=== PATIENT | male | born 1950 | race Caucasian/White ===

== ENCOUNTER 2017-03-26 23:29 | Inpatient (IN) | payer MEDICARE, MEDICAID ==
[~2017-03-26] VITALS: Ht 180.3 cm; Wt 104.3 kg
[2017-03-26] MEDS ORDERED: SODIUM CHLORIDE 0.9% 1,000 ML IV ONE (23:51)
[2017-03-26] MEDS ORDERED: KETOROLAC 30MG/ML VIAL IV STA (23:51)
[2017-03-27 00:14] LABS: BASOPHILS % 0.3 % (0.0-2.0); EOSINOPHILS % 1.8 % (0.0-5.0); HEMATOCRIT. 24.3 % (42.0-52.0); HEMOGLOBIN. 8.2 g/dL (14.0-18.0); LYMPHOCYTES % 11.3 % (20.0-50.0); MEAN CORPUSCULAR VOLUME 86.3 fL (80.0-94.0); MONOCYTES % 6.7 % (2.0-8.0); NEUTROPHILS % 79.9 % (40.0-76.0); PLATELET 193 x1000/uL (130-400); RED BLOOD CELL COUNT 2.82 mill/uL (4.7-6.1); RED CELL DISTRIBUTION WIDTH 15.1 % (11.6-14.6)
[2017-03-27 00:29] LABS: INR 1.1; PROTHROMBIN TIME 11.4 sec (9.4-11.6)
[2017-03-27 00:50] LABS: CARBON DIOXIDE 22 mEq/L (21-32); CHLORIDE 111 mEq/L (98-107)
[2017-03-27] MEDS ORDERED: DOCUSATE SODIUM 100MG CAPSULE PO PRN (04:15)
[2017-03-27] MEDS ORDERED: ONDANSETRON HCL 4MG/2ML VIAL IV PRN (04:15)
[2017-03-27] MEDS ORDERED: LEVOFLOXACIN 500MG PREMIX 100 ML IV SCH (04:15)
[2017-03-27] MEDS ORDERED: TRAMADOL 50MG TABLET PO PRN (04:15)
[2017-03-27] MEDS ORDERED: ACETAMINOPHEN 325MG TABLET PO PRN (04:15)
[2017-03-27] MEDS ORDERED: LEVOFLOXACIN 500MG PREMIX 100 ML IV NR (05:15)
[2017-03-27] MEDS: SODIUM CHLORIDE 0.45% 1,000 ML IV SCH (05:24)
[2017-03-27 08:25] VITALS: BP 170/68
[2017-03-27] MEDS: CLONIDINE 0.1MG TABLET PO PRN ×2 (09:29→18:03)
[2017-03-27] MEDS ORDERED: AMLODIPINE 5MG TABLET PO NR (10:45)
[2017-03-27 12:00] VITALS: BP 173/74
[2017-03-27] MEDS ORDERED: HYDR100T26 PO (13:35)
[2017-03-27] MEDS ORDERED: GABA400C PO (13:35)
[2017-03-27] MEDS ORDERED: FERR220S12 PO (13:35)
[2017-03-27] MEDS ORDERED: DOCU-138 PO (13:35)
[2017-03-27] MEDS ORDERED: OMEP20CA10 PO (13:35)
[2017-03-27] MEDS ORDERED: DUONEB3 ML INH (13:35)
[2017-03-27] MEDS ORDERED: NEPVIT PO (13:35)
[2017-03-27] MEDS ORDERED: LABE100T PO (13:35)
[2017-03-27] MEDS ORDERED: METH5TAB2 PO (13:35)
[2017-03-27] MEDS ORDERED: SODI650T PO (13:35)
[2017-03-27] MEDS ORDERED: OCD MT (13:35)
[2017-03-27] MEDS ORDERED: LEVVL SQ (13:35)
[2017-03-27] MEDS ORDERED: TAMS-11 PO (13:35)
[2017-03-27] MEDS ORDERED: ATOR10TA PO (13:35)
[2017-03-27] MEDS ORDERED: FURO-152 PO (13:35)
[2017-03-27] MEDS ORDERED: IPRATROPIUM/ALBUTEROL 0.5-3(2.5)MG/3ML NEB HHN PRN (13:45)
[2017-03-27] MEDS: HYDRALAZINE HCL 50MG TABLET PO SCH ×2 (14:22→22:00)
[2017-03-27] MEDS: TAMSULOSIN HCL 0.4MG SR CAPSULE PO SCH ×2 (14:23→22:10)
[2017-03-27] MEDS: METHYLPREDNISOLONE SOD SUCC 125 MG/2 ML VIAL IV SCH ×2 (14:23→22:09)
[2017-03-27] MEDS: GABAPENTIN 400MG CAPSULE PO SCH ×2 (14:23→22:10)
[2017-03-27 16:00] VITALS: BP 160/76
[2017-03-27] MEDS ORDERED: FERROUS SULFATE 325 MG PO SCH (17:00)
[2017-03-27 17:19] LABS: HEPATITIS B SURFACE ANTIGEN NEGATIVE
[2017-03-27 17:47] LABS: HEPATITIS B CORE AB IGM NEGATIVE
[2017-03-27 17:48] LABS: HEPATITIS A AB IGM NEGATIVE (NEGATIVE)
[2017-03-27] MEDS: FUROSEMIDE 40MG/4ML VIAL IVP SCH (18:02)
[2017-03-27] MEDS: FERROUS SULFATE 325MG TABLET PO SCH (18:03)
[2017-03-27] MEDS: DOCUSATE SODIUM 100MG CAPSULE PO SCH (18:03)
[2017-03-27] MEDS: SODIUM BICARBONATE 650 MG TABLET PO SCH (18:03)
[2017-03-27] MEDS: METHADONE HCL 5MG TABLET PO SCH ×2 (18:04→22:12)
[2017-03-27 18:55] VITALS: BP 149/78
[2017-03-27 20:00] VITALS: BP 122/68
[2017-03-27] MEDS ORDERED: DEXTROSE 50% WATER 50ML SYRINGE IV PRN (20:30)
[2017-03-27] MEDS: LABETALOL HCL 100MG TABLET PO SCH (21:00)
[2017-03-27] MEDS: BUDESONIDE 0.5MG/2ML NEB HHN SCH (22:06)
[2017-03-27] MEDS: IPRATROPIUM/ALBUTEROL 0.5-3(2.5)MG/3ML NEB INH SCH (22:06)
[2017-03-27] MEDS: ATORVASTATIN CALCIUM 10MG TABLET PO SCH (22:10)
[2017-03-27] MEDS: AMLODIPINE 5MG TABLET PO SCH (22:11)
[2017-03-27] MEDS: BLOOD SUGAR DIAGNOSTIC STRIP TEST SCH (22:18)
[2017-03-27] MEDS: INSULIN DETEMIR UD 100 UNITS/ML SYR SUBCUT SCH (23:01)
[2017-03-27] MEDS: INSULIN LISPRO 100 UNITS/ML SUBCUT SCH (23:01)
[2017-03-28] VITALS: BP 159/74
[2017-03-28 01:26] LABS: CLARITY URINE CLEAR (CLEAR); COLOR URINE YELLOW (YELLOW); GLUCOSE URINE TRACE (NEGATIVE); KETONES URINE NEGATIVE (NEGATIVE); LEUKOCYTE ESTERASE URINE NEGATIVE (NEGATIVE); NITRITE URINE NEGATIVE (NEGATIVE); OCCULT BLOOD URINE TRACE (NEGATIVE); PH URINE 5.5 (4.5-8.0); PROTEIN URINE 3+ (NEGATIVE); SPECIFIC GRAVITY URINE 1.012 (1.005-1.030); UROBILINOGEN URINE 0.2 E.U./dL (0.2-1.0)
[2017-03-28 01:37] LABS: *AMPHETAMINES SCREEN URINE NEGATIVE (NEGATIVE); *BARBITURATES SCREEN URINE NEGATIVE (NEGATIVE); *BENZODIAZEPINES SCREEN URINE NEGATIVE (NEGATIVE); *COCAINE SCREEN URINE NEGATIVE (NEGATIVE); CANNABINOID URINE SCREEN NEGATIVE (NEGATIVE); METHADONE URINE SCREEN PRESUMTIVE POSITIVE (NEGATIVE); OPIATES URINE SCREEN PRESUMTIVE POSITIVE (NEGATIVE); PHENCYCLIDINE URINE SCREEN NEGATIVE (NEGATIVE)
[2017-03-28 04:00] VITALS: BP 120/63
[2017-03-28] MEDS: METHYLPREDNISOLONE SOD SUCC 125 MG/2 ML VIAL IV SCH ×2 (05:42→18:49)
[2017-03-28] MEDS: METHADONE HCL 5MG TABLET PO SCH ×2 (05:48→18:53)
[2017-03-28] MEDS: HYDRALAZINE HCL 50MG TABLET PO SCH ×3 (05:48→22:00)
[2017-03-28] MEDS: GABAPENTIN 400MG CAPSULE PO SCH ×2 (05:49→18:53)
[2017-03-28 05:57] LABS: INR 1.1; PARTIAL THROMBOPLASTIN TIME 30.1 sec (23.4-31.0)
[2017-03-28 06:14] LABS: HEMATOCRIT. 24.6 % (42.0-52.0); HEMOGLOBIN. 8.1 g/dL (14.0-18.0); MEAN CORPUSCULAR HEMOGLOBIN 28.7 pg (28.0-32.0); MEAN CORPUSCULAR VOLUME 87.7 fL (80.0-94.0); MEAN PLATELET VOLUME 8.9 fl (7.4-10.4); PLATELET 189 x1000/uL (130-400); RED BLOOD CELL COUNT 2.81 mill/uL (4.7-6.1); RED CELL DISTRIBUTION WIDTH 14.9 % (11.6-14.6)
[2017-03-28] MEDS: BLOOD SUGAR DIAGNOSTIC STRIP TEST SCH ×4 (07:18→21:00)
[2017-03-28] MEDS: OMEPRAZOLE 20MG CAPSULE EXTENDED RELEASE PO SCH (07:18)
[2017-03-28] MEDS: FERROUS SULFATE 325MG TABLET PO SCH ×2 (07:50→18:52)
[2017-03-28 07:54] LABS: CARBON DIOXIDE 20 mEq/L (21-32); CHLORIDE 106 mEq/L (98-107); HDL CHOLESTEROL 77 mg/dL (40-59); LDL CHOLESTEROL 38 mg/dL (5-100); TROPONIN I < 0.02 ng/mL (0.00-0.04)
[2017-03-28 07:57] VITALS: BP 171/72
[2017-03-28] MEDS: CALCIUM CARBONATE/VITAMIN D3 500MG TABLET PO SCH ×2 (09:00→18:59)
[2017-03-28] MEDS: SODIUM BICARBONATE 650 MG TABLET PO SCH ×2 (09:00→18:49)
[2017-03-28] MEDS: DOCUSATE SODIUM 100MG CAPSULE PO SCH ×2 (09:00→18:52)
[2017-03-28] MEDS: FOLIC ACID/VITAMIN B COMP W-C TABLET PO SCH ×2 (09:00→18:59)
[2017-03-28] MEDS: LABETALOL HCL 100MG TABLET PO SCH (09:00)
[2017-03-28] MEDS: AMLODIPINE 5MG TABLET PO SCH (09:00)
[2017-03-28] MEDS: INSULIN LISPRO 100 UNITS/ML SUBCUT SCH ×5 (09:10→23:24)
[2017-03-28 09:44] LABS: PLATELET ESTIMATE NORMAL
[2017-03-28] MEDS: INSULIN DETEMIR UD 100 UNITS/ML SYR SUBCUT SCH ×2 (10:00→22:00)
[2017-03-28] MEDS: IPRATROPIUM/ALBUTEROL 0.5-3(2.5)MG/3ML NEB INH SCH ×3 (10:54→20:09)
[2017-03-28] MEDS: BUDESONIDE 0.5MG/2ML NEB HHN SCH ×2 (10:54→20:09)
[2017-03-28] MEDS: FUROSEMIDE 40MG/4ML VIAL IVP SCH ×2 (11:00→18:53)
[2017-03-28] MEDS: TAMSULOSIN HCL 0.4MG SR CAPSULE PO SCH (11:22)
[2017-03-28] MEDS ORDERED: FENTANYL CITRATE/PF 50MCG/ML 2ML VIAL ONE (11:38)
[2017-03-28] MEDS ORDERED: MIDAZOLAM HCL 5 MG/5 ML VIAL ONE (11:39)
[2017-03-28] MEDS ORDERED: FENTANYL CITRATE/PF 50MCG/ML 2ML VIAL IV PRN (11:51)
[2017-03-28] MEDS ORDERED: MIDAZOLAM HCL 2 MG/2 ML VIAL IV PRN (11:51)
[2017-03-28 12:00] VITALS: BP 176/74
[2017-03-28] MEDS: LEVOFLOXACIN 250MG PREMIX 50 ML IV SCH (14:14)
[2017-03-28] MEDS: SODIUM CHLORIDE 0.45% 1,000 ML IV SCH (14:14)
[2017-03-28] MEDS ORDERED: SIMETHICONE 40 MG/0.6 ML 30ML ONE (14:32)
[2017-03-28] MEDS ORDERED: SODIUM CHLORIDE 0.9% 10ML VIAL ONE (14:32)
[2017-03-28] MEDS ORDERED: LIDOCAINE HCL 1% 20ML VIAL (Pyxis) INJ ONE (14:44)
[2017-03-28] MEDS ORDERED: SODIUM BICARBONATE 4.2% 5 MEQ/10 ML DISP.SYRIN IV ONE (14:44)
[2017-03-28 15:44] LABS: PROSTRATE SPECIFIC AG TOTAL 1.33 ng/mL (0.0-4.0)
[2017-03-28 16:00] VITALS: BP 179/74
[2017-03-28 20:41] VITALS: BP 184/72
[2017-03-28] MEDS: ATORVASTATIN CALCIUM 10MG TABLET PO SCH (21:00)
[2017-03-29] VITALS: BP 159/63
[2017-03-29] MEDS: SODIUM CHLORIDE 0.45% 1,000 ML IV SCH ×2 (00:26→05:54)
[2017-03-29] MEDS: TAMSULOSIN HCL 0.4MG SR CAPSULE PO SCH ×3 (00:27→21:49)
[2017-03-29] MEDS: AMLODIPINE 5MG TABLET PO SCH ×3 (00:28→21:51)
[2017-03-29] MEDS: GABAPENTIN 400MG CAPSULE PO SCH ×4 (00:29→21:51)
[2017-03-29] MEDS: LABETALOL HCL 100MG TABLET PO SCH ×3 (00:32→21:51)
[2017-03-29] MEDS: METHADONE HCL 5MG TABLET PO SCH ×4 (00:44→21:51)
[2017-03-29] MEDS: IPRATROPIUM/ALBUTEROL 0.5-3(2.5)MG/3ML NEB INH SCH ×4 (01:50→20:21)
[2017-03-29 04:00] VITALS: BP 161/65
[2017-03-29 06:32] LABS: HEMATOCRIT. 23.7 % (42.0-52.0); MEAN CORPUSCULAR HEMOGLOBIN 29.1 pg (28.0-32.0); MEAN CORPUSCULAR VOLUME 86.2 fL (80.0-94.0); MEAN PLATELET VOLUME 9.2 fl (7.4-10.4); PLATELET 201 x1000/uL (130-400); RED BLOOD CELL COUNT 2.75 mill/uL (4.7-6.1)
[2017-03-29] MEDS: BLOOD SUGAR DIAGNOSTIC STRIP TEST SCH ×4 (06:47→21:52)
[2017-03-29] MEDS: HYDRALAZINE HCL 50MG TABLET PO SCH ×3 (07:05→21:50)
[2017-03-29] MEDS: OMEPRAZOLE 20MG CAPSULE EXTENDED RELEASE PO SCH (07:07)
[2017-03-29] MEDS ORDERED: INSULIN LISPRO 100 UNITS/ML SUBCUT SCH (07:20)
[2017-03-29 08:10] VITALS: BP 168/68
[2017-03-29] MEDS: BUDESONIDE 0.5MG/2ML NEB HHN SCH ×2 (08:15→20:21)
[2017-03-29 08:28] LABS: PLATELET ESTIMATE NORMAL
[2017-03-29] MEDS ORDERED: SODIUM POLYSTYRENE SULFONATE 15 G/60 ML BOT PO NR (08:45)
[2017-03-29] MEDS: FERROUS SULFATE 325MG TABLET PO SCH ×2 (08:56→17:47)
[2017-03-29] MEDS: DOCUSATE SODIUM 100MG CAPSULE PO SCH ×2 (08:56→17:47)
[2017-03-29] MEDS: FOLIC ACID/VITAMIN B COMP W-C TABLET PO SCH (08:56)
[2017-03-29] MEDS: SODIUM BICARBONATE 650 MG TABLET PO SCH ×2 (08:56→17:47)
[2017-03-29] MEDS: CALCIUM CARBONATE/VITAMIN D3 500MG TABLET PO SCH (08:57)
[2017-03-29] MEDS: INSULIN LISPRO 100 UNITS/ML SUBCUT SCH ×3 (08:58→19:10)
[2017-03-29] MEDS: INSULIN LISPRO (LOW DOSE) 100 UNITS/ML SUBCUT SCH ×3 (08:58→19:11)
[2017-03-29] MEDS: FUROSEMIDE 40MG/4ML VIAL IVP SCH ×2 (09:44→17:47)
[2017-03-29] MEDS: LEVOFLOXACIN 250MG PREMIX 50 ML IV SCH (11:43)
[2017-03-29 12:46] VITALS: BP 168/68
[2017-03-29 13:13] LABS: ALPHA FETOPROTEIN TUMOR MARKER 1.8 ng/mL (0.0-8.3)
[2017-03-29 16:45] VITALS: BP 168/63
[2017-03-29 19:07] LABS: ANTI-NUCLEAR ANTIBODIES DIRECT Negative (Negative)
[2017-03-29 20:00] VITALS: BP 163/77
[2017-03-29] MEDS ORDERED: EPOETIN ALFA 10000UNITS/ML VIAL SUBCUT SCH (21:00)
[2017-03-29] MEDS: METHYLPREDNISOLONE SOD SUCC 40 MG/ML VIAL IV SCH (21:48)
[2017-03-29] MEDS: ATORVASTATIN CALCIUM 10MG TABLET PO SCH (21:50)
[2017-03-29] MEDS ORDERED: INSULIN DETEMIR UD 100 UNITS/ML SYR SUBCUT SCH (22:00)
[2017-03-30] VITALS: BP 133/55
[2017-03-30] MEDS: IPRATROPIUM/ALBUTEROL 0.5-3(2.5)MG/3ML NEB INH SCH ×3 (02:57→13:07)
[2017-03-30 04:00] VITALS: BP 156/57
[2017-03-30 05:36] LABS: HEMATOCRIT. 24.2 % (42.0-52.0); MEAN CORPUSCULAR HEMOGLOBIN 28.6 pg (28.0-32.0); MEAN CORPUSCULAR VOLUME 86.6 fL (80.0-94.0); MEAN PLATELET VOLUME 8.8 fl (7.4-10.4); PLATELET 230 x1000/uL (130-400); RED CELL DISTRIBUTION WIDTH 14.7 % (11.6-14.6)
[2017-03-30] MEDS: HYDRALAZINE HCL 50MG TABLET PO SCH ×2 (06:49→13:17)
[2017-03-30] MEDS: METHADONE HCL 5MG TABLET PO SCH ×2 (06:49→13:18)
[2017-03-30] MEDS: BLOOD SUGAR DIAGNOSTIC STRIP TEST SCH ×3 (06:50→17:50)
[2017-03-30] MEDS: GABAPENTIN 400MG CAPSULE PO SCH ×2 (06:50→13:17)
[2017-03-30] MEDS: OMEPRAZOLE 20MG CAPSULE EXTENDED RELEASE PO SCH (06:51)
[2017-03-30] MEDS: INSULIN LISPRO 100 UNITS/ML SUBCUT SCH ×3 (06:56→17:59)
[2017-03-30] MEDS: INSULIN LISPRO (LOW DOSE) 100 UNITS/ML SUBCUT SCH ×3 (08:49→17:59)
[2017-03-30] MEDS: FERROUS SULFATE 325MG TABLET PO SCH ×2 (08:49→17:59)
[2017-03-30] MEDS: AMLODIPINE 5MG TABLET PO SCH (08:50)
[2017-03-30] MEDS: FOLIC ACID/VITAMIN B COMP W-C TABLET PO SCH (08:50)
[2017-03-30] MEDS: LABETALOL HCL 100MG TABLET PO SCH (08:50)
[2017-03-30] MEDS: DOCUSATE SODIUM 100MG CAPSULE PO SCH ×2 (08:50→18:00)
[2017-03-30] MEDS: METHYLPREDNISOLONE SOD SUCC 40 MG/ML VIAL IV SCH (08:51)
[2017-03-30] MEDS: CALCIUM CARBONATE/VITAMIN D3 500MG TABLET PO SCH (08:51)
[2017-03-30] MEDS: TAMSULOSIN HCL 0.4MG SR CAPSULE PO SCH (08:51)
[2017-03-30] MEDS: SODIUM BICARBONATE 650 MG TABLET PO SCH ×2 (08:51→17:59)
[2017-03-30] MEDS: FUROSEMIDE 40MG/4ML VIAL IVP SCH (08:51)
[2017-03-30 08:56] VITALS: BP 162/59
[2017-03-30] MEDS: BUDESONIDE 0.5MG/2ML NEB HHN SCH (09:01)
[2017-03-30 09:08] LABS: DRVVT LA 45.4 sec (0.0-47.0); LUPUS ANTICOAG INTERPRETATION Comment: (.); PTT-LA 39.6 sec (0.0-51.9)
[2017-03-30] MEDS: LEVOFLOXACIN 250MG PREMIX 50 ML IV SCH (11:36)
[2017-03-30 12:02] VITALS: BP 174/71
[2017-03-30 13:12] LABS: ANTI-MYELOPEROXIDASE AB < 9.0 U/mL (0.0-9.0); ANTI-PROTEINASE 3 ABS < 3.5 U/mL (0.0-3.5)
[2017-03-30 15:12] LABS: ATYPICAL P-ANCA <1:20 titer (Neg:<1:20); CYTOPLASMIC C-ANCA <1:20 titer (Neg:<1:20); PERINUCLEAR P-ANCA <1:20 titer (Neg:<1:20)
[2017-03-30 16:05] LABS: TOTAL IRON BINDING CAPACITY 176 ug/dL (250-450)
[2017-03-30 16:28] VITALS: BP 143/58
[2017-03-30 16:34] LABS: FERRITIN 323 ng/mL (22-322)
[2017-03-30 16:46] LABS: VITAMIN B12 SERUM 499 pg/mL (211-911)
[2017-03-30 16:47] LABS: FOLIC ACID (FOLATE) SERUM > 20.00 ng/mL (>5.38)
[2017-03-30] MEDS ORDERED: FUROSEMIDE 40MG TABLET PO SCH (17:00)
[2017-03-30 17:12] LABS: ANGIOTENSION CONVERTING ENZYME 70 U/L (14-82)
[2017-03-30 17:20] LABS: PLATELET ESTIMATE NORMAL
[2017-03-30 17:23] VITALS: BP 143/58
[2017-03-30] MEDS ORDERED: INSULIN DETEMIR UD 100 UNITS/ML SYR SUBCUT SCH (22:00)
[2017-03-31] MEDS ORDERED: PREDNISONE 20MG TABLET PO SCH (09:00)
== END 2017-03-30 19:55 | DRG 291 ==
LOC: ER 23:29 → 6WST 03-27 01:51 → ENRESERV 03-27 06:25
PROVIDERS: ADMIT Internal Medicine Nephrology; ATTEND Internal Medicine Nephrology
PROC: 0W9B3ZZ Drainage of Left Pleural Cavity, Percutaneous Approach (ICD-10-PCS; 2017-03-28)
PROC: 0DB68ZX Excision of Stomach, Via Natural or Artificial Opening Endoscopic, Diagnostic (ICD-10-PCS; principal; 2017-03-28 11:00)
DX: I13.0 Hypertensive heart and chronic kidney disease with heart failure and stage 1 through stage 4 chronic kidney disease, or unspecified chronic kidney disease (principal); J96.00 Acute respiratory failure, unspecified whether with hypoxia or hypercapnia; E43 Unspecified severe protein-calorie malnutrition; J94.8 Other specified pleural conditions; J84.9 Interstitial pulmonary disease, unspecified; E11.22 Type 2 diabetes mellitus with diabetic chronic kidney disease; I50.33 Acute on chronic diastolic (congestive) heart failure; N17.9 Acute kidney failure, unspecified; J44.1 Chronic obstructive pulmonary disease with (acute) exacerbation; E11.42 Type 2 diabetes mellitus with diabetic polyneuropathy; N18.3 Chronic kidney disease, stage 3 (moderate); K21.9 Gastro-esophageal reflux disease without esophagitis; K29.60 Other gastritis without bleeding; E78.00 Pure hypercholesterolemia, unspecified; E78.5 Hyperlipidemia, unspecified; E87.5 Hyperkalemia; F17.210 Nicotine dependence, cigarettes, uncomplicated; I25.10 Atherosclerotic heart disease of native coronary artery without angina pectoris; N40.0 Benign prostatic hyperplasia without lower urinary tract symptoms; Q63.1 Lobulated, fused and horseshoe kidney; T38.0X5A Adverse effect of glucocorticoids and synthetic analogues, initial encounter; E11.65 Type 2 diabetes mellitus with hyperglycemia; E11.621 Type 2 diabetes mellitus with foot ulcer; L89.622 Pressure ulcer of left heel, stage 2; E11.51 Type 2 diabetes mellitus with diabetic peripheral angiopathy without gangrene; D63.8 Anemia in other chronic diseases classified elsewhere; K59.09 Other constipation; Z22.322 Carrier or suspected carrier of Methicillin resistant Staphylococcus aureus; Z79.4 Long term (current) use of insulin; Z79.899 Other long term (current) drug therapy; Z83.3 Family history of diabetes mellitus; Z89.429 Acquired absence of other toe(s), unspecified side; Z88.6 Allergy status to analgesic agent; Y92.89 Other specified places as the place of occurrence of the external cause; Z68.32 Body mass index [BMI] 32.0-32.9, adult; R91.8 Other nonspecific abnormal finding of lung field
CPT/HCPCS: 32555; 36415; 71010; 71250; 74176; 80048; 80053; 80061; 80305; 81001; 82040; 82105; 82164; 82270; 82378; 82607; 82728; 82746; 82945; 82962; 83036; 83520; 83540; 83550; 83615; 83690; 83880; 84153; 84439; 84443; 84478; 84484; 85025; 85610; 85613; 85651; 85730; 85732; 86038; 86140; 86256; 86431; 86677; 86705; 86709; 86803; 87040; 87070; 87086; 87186; 87205; 87340; 89050; 93005; 93306; 93970; 94003; 94640; 94664; 96361; 96365; 96375; 97116; 97163; 97530; 99285; A4216; J0885; J1815; J1885; J1940; J1956; J2250; J2920; J2930; J3010; J3490; J7030; J7620; J7626

== ENCOUNTER 2017-10-30 09:50 | Day surgery (SDC) | payer MEDICARE, MEDICAID ==
[~2017-10-30 09:50] MED LIST: AMLO5TAB4 PO; ATOR10TA PO; DEXT15DR5 EACHEYE; DOCU-138 PO; DOCU250C14 PO; DUONEB3 ML INH; FERR220S12 PO; FURO-152 PO; GABA400C PO; HYDR-4009 PO; HYDR-4134 PO; IPRA3AMP9 HHN; LABE100T PO; LEVVL SQ; METH5TAB2 PO; NEPVIT PO; OCD PO; OMEP20CA10 PO; SENN8.6T60 PO; SODI650T PO; TAMS-11 PO
[2017-10-30] MEDS ORDERED: GELATIN SPONGE,ABSORBABLE SZ 100 ONE (10:17)
[2017-10-30] MEDS ORDERED: BUPIVACAINE HCL/PF 0.5% (5MG/ML) 10ML ONE (10:18)
[2017-10-30] MEDS ORDERED: LIDOCAINE HCL/PF 1% 10 MG/ML 5ML VIAL ONE ×2 (10:18→11:20)
[2017-10-30] MEDS ORDERED: HEPARIN SODIUM 1,000 UNIT/1ML VIAL IV ONE (10:18)
[2017-10-30] MEDS ORDERED: THROMBIN (BOVINE) 5000 UNITS/VIAL TOP ONE (10:18)
[2017-10-30] MEDS ORDERED: BACITRACIN ZINC 15GM TUBE TOP ONE (10:18)
[2017-10-30] MEDS ORDERED: BACITRACIN 50,000 UNITS/VIAL ONE (10:19)
[2017-10-30] MEDS ORDERED: NORMAL SALINE 0.9% 10 ML SYR ONE (10:19)
[2017-10-30 11:00] LABS: BASOPHILS % 0.7 % (0.0-2.0); HEMOGLOBIN. 10.3 g/dL (14.0-18.0); LYMPHOCYTES % 21.7 % (20.0-50.0); MEAN CORPUSCULAR HEMOGLOBIN 30.3 pg (28.0-32.0); MONOCYTES % 7.4 % (2.0-8.0); NEUTROPHILS % 68.2 % (40.0-76.0); PLATELET 258 x1000/uL (130-400); RED BLOOD CELL COUNT 3.41 mill/uL (4.7-6.1)
[2017-10-30 11:07] LABS: INR 1.1; PROTHROMBIN TIME 11.8 sec (9.4-11.6)
[2017-10-30] MEDS ORDERED: PROPOFOL 200MG/20ML VIAL IV ONE (11:19)
[2017-10-30] MEDS ORDERED: FENTANYL CITRATE/PF 50MCG/ML 2ML VIAL ONE (11:19)
[2017-10-30] MEDS ORDERED: MIDAZOLAM HCL 2 MG/2 ML VIAL ONE (11:19)
[2017-10-30] MEDS ORDERED: GLYCOPYRROLATE 0.2 MG/ML 2ML VIAL ONE (11:20)
[2017-10-30] MEDS ORDERED: ONDANSETRON HCL 4MG/2ML VIAL ONE (11:20)
[2017-10-30] MEDS ORDERED: METOCLOPRAMIDE HCL 10MG/2ML VIAL ONE (11:20)
[2017-10-30] MEDS ORDERED: SUCCINYLCHOLINE CHLORIDE 200MG/10ML VIAL IV ONE (11:20)
[2017-10-30] MEDS ORDERED: CEFAZOLIN SODIUM 1000MG/VIAL ONE (11:22)
[2017-10-30] MEDS ORDERED: PHENYLEPHRINE HCL 10 MG/ML 1ML (IV VIAL) IV ONE (11:33)
[2017-10-30] MEDS ORDERED: EPHEDRINE SULFATE 50MG/ML VIAL ONE (11:33)
[2017-10-30] MEDS ORDERED: HEPARIN 1000 UNITS/ML 10ML ONE (11:59)
[2017-10-30] MEDS ORDERED: SODIUM CHLORIDE 0.9% 1,000 ML IV ONE (13:23)
[2017-10-30] MEDS ORDERED: HYDROMORPHONE HCL/PF 2MG/ML CPJ IV PRN (13:30)
[2017-10-30] MEDS ORDERED: ONDANSETRON HCL 4MG/2ML VIAL IV PRN (13:30)
== END 2017-10-30 14:00 | disposition home or self-care (01) ==
LOC: OR 09:50
PROVIDERS: ATTEND Surgery Vascular Surgery
DX: T82.898A Other specified complication of vascular prosthetic devices, implants and grafts, initial encounter (principal); I13.2 Hypertensive heart and chronic kidney disease with heart failure and with stage 5 chronic kidney disease, or end stage renal disease; E11.22 Type 2 diabetes mellitus with diabetic chronic kidney disease; N18.6 End stage renal disease; Z79.899 Other long term (current) drug therapy; K21.9 Gastro-esophageal reflux disease without esophagitis; J44.9 Chronic obstructive pulmonary disease, unspecified; E78.4 Other hyperlipidemia; Z79.4 Long term (current) use of insulin; I50.23 Acute on chronic systolic (congestive) heart failure; D63.1 Anemia in chronic kidney disease; G89.4 Chronic pain syndrome; J81.1 Chronic pulmonary edema; Z99.2 Dependence on renal dialysis; Y83.2 Surgical operation with anastomosis, bypass or graft as the cause of abnormal reaction of the patient, or of later complication, without mention of misadventure at the time of the procedure; Z87.11 Personal history of peptic ulcer disease; E78.00 Pure hypercholesterolemia, unspecified; E11.610 Type 2 diabetes mellitus with diabetic neuropathic arthropathy; Z88.5 Allergy status to narcotic agent; I25.10 Atherosclerotic heart disease of native coronary artery without angina pectoris; E11.42 Type 2 diabetes mellitus with diabetic polyneuropathy; E11.51 Type 2 diabetes mellitus with diabetic peripheral angiopathy without gangrene; B19.20 Unspecified viral hepatitis C without hepatic coma
CPT/HCPCS: 36415; 36838; 80048; 82962; 85025; 85610; 85730; 93005; A4216; C1768; J0330; J0690; J1644; J2250; J2370; J2405; J2765; J3010; J3490; J7040; J2704

== ENCOUNTER → 2018-07-25 | Outpatient (CLI) | payer MEDICARE, MEDICAID ==
[~2018-07-25] MED LIST changes: +ACET-2178 PO; +CALC667C PO; +CLON0.1T PO; +CYCL30DR BOTHEYE; +ENAL20TA PO; +HYDR-4135 PO; +INSU100I28 SQ; -LABE100T PO; +LABE100T5 PO; +LORA-249 PO; +MINO2.5T2 PO; +OLOP2.5D BOTHEYE; +ONDA4TAB5 PO; +REGADENOSON 0.4 MG/5 ML IV ONE; +SERT50TA PO
== END | disposition home or self-care (01) ==
LOC: NM 06:43
PROVIDERS: ATTEND Specialist
DX: I25.10 Atherosclerotic heart disease of native coronary artery without angina pectoris (principal); R94.31 Abnormal electrocardiogram [ECG] [EKG]
CPT/HCPCS: 78452; 93017; A9500; C1893; J2785

== ENCOUNTER 2018-07-31 05:33 | Inpatient (IN) | payer MEDICARE, MEDICAID ==
[2018-07-31] VITALS (56 sets, daily range): BP systolic 56–190; BP diastolic 34–75
[~2018-07-31] VITALS: Ht 188 cm; Wt 111.1 kg
[~2018-07-31 05:33] MED LIST changes: -AMLO5TAB4 PO; -DEXT15DR5 EACHEYE; -DOCU-138 PO; -DUONEB3 ML INH; -FERR220S12 PO; -FURO-152 PO; -HYDR-4134 PO; -IPRA3AMP9 HHN; -LABE100T5 PO; -LEVVL SQ; -OCD PO; -REGADENOSON 0.4 MG/5 ML IV ONE; -SODI650T PO
[2018-07-31] MEDS ORDERED: SODIUM CHLORIDE 0.9% 500 ML IV ONE (06:30)
[2018-07-31] MEDS ORDERED: GELATIN SPONGE,ABSORBABLE 12-7MM SPONGE ONE (06:31)
[2018-07-31] MEDS ORDERED: LIDOCAINE HCL/EPINEPHRINE 1%-EPI 1:100,000 20 ML VIAL ONE (06:32)
[2018-07-31] MEDS ORDERED: BACITRACIN 50,000 UNITS/VIAL ONE (06:33)
[2018-07-31] MEDS ORDERED: THROMBIN (BOVINE) 5000 UNITS/VIAL TOP ONE (06:33)
[2018-07-31] MEDS ORDERED: ROCURONIUM BROMIDE 10MG/ML VIAL 5ML IV ONE ×2 (06:47→08:05)
[2018-07-31] MEDS ORDERED: PROPOFOL 200MG/20ML VIAL IV ONE (06:47)
[2018-07-31] MEDS ORDERED: MIDAZOLAM HCL 2 MG/2 ML VIAL ONE (06:47)
[2018-07-31] MEDS ORDERED: FENTANYL CITRATE/PF 50MCG/ML 5ML VIAL ONE (06:47)
[2018-07-31] MEDS ORDERED: PHENYLEPHRINE HCL 10 MG/ML 1ML (IV VIAL) IV ONE (06:52)
[2018-07-31] MEDS ORDERED: CEFAZOLIN SODIUM 1000MG/VIAL ONE (06:52)
[2018-07-31] MEDS ORDERED: HYDROMORPHONE HCL/PF 2MG/ML (OR) ONE (07:00)
[2018-07-31] MEDS ORDERED: DEXT 5%/LACTATED RINGERS 1,000 ML IV SCH (07:30)
[2018-07-31] MEDS ORDERED: GLYCOPYRROLATE 0.2 MG/ML 2ML VIAL ONE ×3 (08:18→10:22)
[2018-07-31] MEDS ORDERED: NEOSTIGMINE METHYLSULFATE 1MG/ML 10 ML VIAL ONE (09:38)
[2018-07-31] MEDS ORDERED: ONDANSETRON INJ IV PRN (10:45)
[2018-07-31] MEDS ORDERED: DIPHENHYDRAMINE INJ IV PRN (10:45)
[2018-07-31] MEDS ORDERED: IPRATROPIUM/ALBUTEROL 0.5-3(2.5)MG/3ML NEB HHN PRN (10:45)
[2018-07-31] MEDS ORDERED: NALOXONE INJ IV PRN (10:45)
[2018-07-31] MEDS ORDERED: HYDROMORPHONE HCL/PF 2MG/ML CPJ IV PRN (11:00)
[2018-07-31] MEDS ORDERED: FENTANYL CITRATE/PF 50MCG/ML 2ML VIAL IV PRN (11:00)
[2018-07-31] MEDS: HYDROMORPHONE PCA 10MG/50ML IV PRN (11:09)
[2018-07-31] MEDS: NICARDIPINE 100 MG in SODIUM CHLORIDE 0.9% 60 ML IV PRN ×2 (11:26→20:50)
[2018-07-31] MEDS ORDERED: DEXTROSE 50% WATER 50ML SYRINGE IV PRN (11:45)
[2018-07-31] MEDS: INSULIN LISPRO 100 UNITS/ML SUBCUT SCH ×3 (12:20→21:17)
[2018-07-31] MEDS: DEXAMETHASONE 4MG/ML 1ML VIAL IV SCH ×2 (12:20→18:21)
[2018-07-31] MEDS: DEXT 5%/0.45% NACL 1000ML 1,000 ML IV SCH (12:21)
[2018-07-31] MEDS: IPRATROPIUM/ALBUTEROL 0.5-3(2.5)MG/3ML NEB HHN SCH ×2 (13:06→20:21)
[2018-07-31] MEDS ORDERED: CEFAZOLIN SODIUM 1000MG/VIAL IV SCH (14:00)
[2018-07-31 15:34] LABS: HEMATOCRIT. 31.3 % (42.0-52.0); HEMOGLOBIN. 10.2 g/dL (14.0-18.0); MEAN CORPUSCULAR HEMOGLOBIN 30.7 pg (28.0-32.0); MEAN CORPUSCULAR VOLUME 94.4 fL (80.0-94.0); PLATELET 167 x1000/uL (130-400); RED BLOOD CELL COUNT 3.31 mill/uL (4.7-6.1); RED CELL DISTRIBUTION WIDTH 15.7 % (11.6-14.6)
[2018-07-31 15:46] LABS: PLATELET ESTIMATE NORMAL
[2018-07-31] MEDS: MORPHINE SULFATE 4 MG/ML CPJ (NOT FOR IM USE) IV PRN (16:04)
[2018-07-31] MEDS: BLOOD SUGAR DIAGNOSTIC STRIP TEST SCH ×2 (16:30→21:00)
[2018-07-31] MEDS: DOCUSATE SODIUM 100MG CAPSULE PO SCH (17:00)
[2018-08-01] VITALS (96 sets, daily range): BP systolic 107–162; BP diastolic 36–95
[2018-08-01] MEDS: DEXAMETHASONE 4MG/ML 1ML VIAL IV SCH ×3 (00:50→12:48)
[2018-08-01] MEDS: IPRATROPIUM/ALBUTEROL 0.5-3(2.5)MG/3ML NEB HHN SCH ×3 (02:30→20:00)
[2018-08-01] MEDS: DEXT 5%/0.45% NACL 1000ML 1,000 ML IV SCH (06:17)
[2018-08-01] MEDS: BLOOD SUGAR DIAGNOSTIC STRIP TEST SCH ×4 (06:17→21:19)
[2018-08-01] MEDS: NICARDIPINE 100 MG in SODIUM CHLORIDE 0.9% 60 ML IV PRN ×2 (06:17→21:14)
[2018-08-01 06:19] LABS: HEMATOCRIT. 30.2 % (42.0-52.0); HEMOGLOBIN. 9.8 g/dL (14.0-18.0); MEAN CORPUSCULAR HEMOGLOBIN 30.6 pg (28.0-32.0); MEAN CORPUSCULAR VOLUME 94.2 fL (80.0-94.0); MEAN PLATELET VOLUME 8.8 fl (7.4-10.4); PLATELET 172 x1000/uL (130-400); RED CELL DISTRIBUTION WIDTH 15.7 % (11.6-14.6)
[2018-08-01] MEDS: INSULIN LISPRO 100 UNITS/ML SUBCUT SCH ×4 (06:19→21:37)
[2018-08-01 06:26] LABS: CHLORIDE 104 mEq/L (98-107)
[2018-08-01 06:38] LABS: LDL CHOLESTEROL 29 mg/dL (5-100)
[2018-08-01 06:40] LABS: HDL CHOLESTEROL 74 mg/dL (40-59)
[2018-08-01] MEDS: HYDROMORPHONE PCA 10MG/50ML IV PRN (06:48)
[2018-08-01 07:49] LABS: PLATELET ESTIMATE NORMAL
[2018-08-01] MEDS: DOCUSATE SODIUM 100MG CAPSULE PO SCH ×2 (09:00→17:00)
[2018-08-01] MEDS ORDERED: CEFAZOLIN 1000MG PREMIX 50 ML IV SCH (09:00)
[2018-08-01] MEDS: LORAZEPAM 2MG/ML CPJ IV SCH ×2 (09:28→09:33)
[2018-08-01] MEDS ORDERED: INSULIN GLARGINE UD 100 UNITS/ML SYR SUBCUT SCH (10:00)
[2018-08-01] MEDS ORDERED: CLONIDINE 0.1MG TABLET PO PRN (19:15)
[2018-08-01] MEDS: HYDRALAZINE HCL 50MG TABLET PO SCH (21:35)
[2018-08-01] MEDS: MORPHINE SULFATE 4 MG/ML CPJ (NOT FOR IM USE) IV PRN (21:39)
[2018-08-01] MEDS: ENALAPRIL 5MG TABLET PO SCH (22:30)
[2018-08-02] VITALS (91 sets, daily range): BP systolic 115–160; BP diastolic 34–92
[2018-08-02] MEDS: IPRATROPIUM/ALBUTEROL 0.5-3(2.5)MG/3ML NEB HHN SCH ×4 (01:09→21:26)
[2018-08-02] MEDS: HYDRALAZINE HCL 50MG TABLET PO SCH (05:28)
[2018-08-02] MEDS: NICARDIPINE 100 MG in SODIUM CHLORIDE 0.9% 60 ML IV PRN ×2 (05:28→16:12)
[2018-08-02] MEDS: DEXT 5%/0.45% NACL 1000ML 1,000 ML IV SCH (05:30)
[2018-08-02] MEDS: INSULIN LISPRO 100 UNITS/ML SUBCUT SCH ×4 (05:30→21:35)
[2018-08-02] MEDS: BLOOD SUGAR DIAGNOSTIC STRIP TEST SCH ×4 (05:30→21:35)
[2018-08-02 06:42] LABS: HEMATOCRIT. 29.4 % (42.0-52.0); HEMOGLOBIN. 9.7 g/dL (14.0-18.0); MEAN CORPUSCULAR HEMOGLOBIN 30.7 pg (28.0-32.0); MEAN CORPUSCULAR VOLUME 93.3 fL (80.0-94.0); MEAN PLATELET VOLUME 8.8 fl (7.4-10.4); PLATELET 181 x1000/uL (130-400); RED BLOOD CELL COUNT 3.15 mill/uL (4.7-6.1); RED CELL DISTRIBUTION WIDTH 15.6 % (11.6-14.6)
[2018-08-02 07:06] LABS: PHOSPHORUS 6.6 mg/dL (2.5-4.9)
[2018-08-02] MEDS: CALCIUM ACETATE 667MG CAPSULE PO SCH ×3 (08:00→16:12)
[2018-08-02] MEDS: DOCUSATE SODIUM 100MG CAPSULE PO SCH ×2 (08:59→16:12)
[2018-08-02] MEDS: FOLIC ACID/VITAMIN B COMP W-C TABLET PO SCH (08:59)
[2018-08-02] MEDS: ENALAPRIL 5MG TABLET PO SCH (09:09)
[2018-08-02] MEDS: MINOXIDIL 2.5MG TABLET PO SCH (09:22)
[2018-08-02] MEDS: INSULIN GLARGINE UD 100 UNITS/ML SYR SUBCUT SCH (09:33)
[2018-08-02] MEDS: CLONIDINE 0.1MG TABLET PO SCH ×2 (10:15→21:34)
[2018-08-02] MEDS: LOSARTAN POTASSIUM 50 MG TABLET PO SCH ×2 (10:15→21:33)
[2018-08-02] MEDS ORDERED: BISACODYL 5MG TABLET PO PRN (10:30)
[2018-08-02] MEDS: PANTOPRAZOLE 40MG DR TABLET PO SCH (11:15)
[2018-08-02] MEDS: HYDRALAZINE HCL 100MG TABLET PO SCH ×2 (14:00→21:34)
[2018-08-02 14:23] LABS: PLATELET ESTIMATE NORMAL
[2018-08-02] MEDS: HYDROMORPHONE PCA 10MG/50ML IV PRN (20:36)
[2018-08-02] MEDS: ONDANSETRON HCL 4MG/2ML INJ IV PRN (21:50)
[2018-08-03] VITALS (91 sets, daily range): BP systolic 97–166; BP diastolic 32–95
[2018-08-03] MEDS: IPRATROPIUM/ALBUTEROL 0.5-3(2.5)MG/3ML NEB HHN SCH ×3 (01:28→20:47)
[2018-08-03] MEDS: NICARDIPINE 100 MG in SODIUM CHLORIDE 0.9% 60 ML IV PRN (05:32)
[2018-08-03 05:33] LABS: HEMATOCRIT. 28.2 % (42.0-52.0); HEMOGLOBIN. 9.2 g/dL (14.0-18.0); MEAN CORPUSCULAR HEMOGLOBIN 30.4 pg (28.0-32.0); MEAN CORPUSCULAR VOLUME 92.8 fL (80.0-94.0); MEAN PLATELET VOLUME 8.6 fl (7.4-10.4); PLATELET 171 x1000/uL (130-400); RED BLOOD CELL COUNT 3.04 mill/uL (4.7-6.1); RED CELL DISTRIBUTION WIDTH 15.7 % (11.6-14.6)
[2018-08-03] MEDS: HYDRALAZINE HCL 100MG TABLET PO SCH ×3 (05:46→21:29)
[2018-08-03] MEDS: PANTOPRAZOLE 40MG DR TABLET PO SCH (05:46)
[2018-08-03] MEDS: CALCIUM ACETATE 667MG CAPSULE PO SCH ×3 (05:46→17:22)
[2018-08-03] MEDS: INSULIN LISPRO 100 UNITS/ML SUBCUT SCH ×4 (05:47→21:18)
[2018-08-03] MEDS: BLOOD SUGAR DIAGNOSTIC STRIP TEST SCH ×4 (05:48→21:10)
[2018-08-03] MEDS: MORPHINE SULFATE 4 MG/ML CPJ (NOT FOR IM USE) IV PRN ×3 (06:39→23:41)
[2018-08-03] MEDS: DOCUSATE SODIUM 100MG CAPSULE PO SCH ×2 (09:57→17:22)
[2018-08-03] MEDS: FOLIC ACID/VITAMIN B COMP W-C TABLET PO SCH (09:58)
[2018-08-03] MEDS: LOSARTAN POTASSIUM 50 MG TABLET PO SCH ×2 (09:58→21:16)
[2018-08-03] MEDS: CLONIDINE 0.1MG TABLET PO SCH ×2 (09:58→21:17)
[2018-08-03] MEDS: MINOXIDIL 2.5MG TABLET PO SCH (09:58)
[2018-08-03] MEDS: INSULIN GLARGINE UD 100 UNITS/ML SYR SUBCUT SCH (10:03)
[2018-08-03 12:43] LABS: PLATELET ESTIMATE NORMAL
[2018-08-04] VITALS (18 sets, daily range): BP systolic 116–142; BP diastolic 39–56
[2018-08-04] MEDS: HYDRALAZINE HCL 100MG TABLET PO SCH ×3 (06:00→21:51)
[2018-08-04] MEDS: ONDANSETRON HCL 4MG/2ML INJ IV PRN ×2 (06:15→16:29)
[2018-08-04] MEDS: BLOOD SUGAR DIAGNOSTIC STRIP TEST SCH ×4 (06:37→20:03)
[2018-08-04 07:49] LABS: HEMATOCRIT. 32.8 % (42.0-52.0); HEMOGLOBIN. 10.7 g/dL (14.0-18.0); MEAN CORPUSCULAR HEMOGLOBIN 30.2 pg (28.0-32.0); MEAN CORPUSCULAR VOLUME 92.7 fL (80.0-94.0); MEAN PLATELET VOLUME 8.5 fl (7.4-10.4); PLATELET 194 x1000/uL (130-400); RED BLOOD CELL COUNT 3.54 mill/uL (4.7-6.1); RED CELL DISTRIBUTION WIDTH 15.1 % (11.6-14.6)
[2018-08-04] MEDS: INSULIN LISPRO 100 UNITS/ML SUBCUT SCH ×4 (08:10→20:44)
[2018-08-04] MEDS: LOSARTAN POTASSIUM 50 MG TABLET PO SCH ×2 (09:03→20:43)
[2018-08-04] MEDS: PANTOPRAZOLE 40MG DR TABLET PO SCH (09:03)
[2018-08-04] MEDS: FOLIC ACID/VITAMIN B COMP W-C TABLET PO SCH (09:03)
[2018-08-04] MEDS: DOCUSATE SODIUM 100MG CAPSULE PO SCH ×2 (09:03→16:33)
[2018-08-04] MEDS: CALCIUM ACETATE 667MG CAPSULE PO SCH ×3 (09:03→18:53)
[2018-08-04] MEDS: CLONIDINE 0.1MG TABLET PO SCH ×2 (09:04→20:43)
[2018-08-04] MEDS: MINOXIDIL 2.5MG TABLET PO SCH (09:04)
[2018-08-04] MEDS: INSULIN GLARGINE UD 100 UNITS/ML SYR SUBCUT SCH (10:36)
[2018-08-04] MEDS: IPRATROPIUM/ALBUTEROL 0.5-3(2.5)MG/3ML NEB HHN SCH ×3 (13:19→21:21)
[2018-08-04 13:52] LABS: PLATELET ESTIMATE NORMAL
[2018-08-04 16:14] LABS: BASOPHILS % 0.2 % (0.0-2.0); EOSINOPHILS % 0.2 % (0.0-5.0); HEMATOCRIT. 31.8 % (42.0-52.0); HEMOGLOBIN. 10.5 g/dL (14.0-18.0); LYMPHOCYTES % 8.1 % (20.0-50.0); MEAN CORPUSCULAR HEMOGLOBIN 30.4 pg (28.0-32.0); MEAN CORPUSCULAR VOLUME 92.7 fL (80.0-94.0); MEAN PLATELET VOLUME 8.6 fl (7.4-10.4); MONOCYTES % 7.2 % (2.0-8.0); NEUTROPHILS % 84.3 % (40.0-76.0); PLATELET 197 x1000/uL (130-400); RED BLOOD CELL COUNT 3.44 mill/uL (4.7-6.1); RED CELL DISTRIBUTION WIDTH 14.9 % (11.6-14.6)
[2018-08-05] VITALS: BP 131/59
[2018-08-05] MEDS: IPRATROPIUM/ALBUTEROL 0.5-3(2.5)MG/3ML NEB HHN SCH ×4 (02:15→14:46)
[2018-08-05 04:00] VITALS: BP 132/24
[2018-08-05] MEDS: HYDRALAZINE HCL 100MG TABLET PO SCH ×3 (05:39→22:05)
[2018-08-05] MEDS: BLOOD SUGAR DIAGNOSTIC STRIP TEST SCH ×4 (05:43→20:09)
[2018-08-05] MEDS: INSULIN LISPRO 100 UNITS/ML SUBCUT SCH ×4 (07:13→20:10)
[2018-08-05 08:00] VITALS: BP 125/65
[2018-08-05] MEDS: INSULIN GLARGINE UD 100 UNITS/ML SYR SUBCUT SCH (09:54)
[2018-08-05] MEDS: MORPHINE SULFATE 4 MG/ML CPJ (NOT FOR IM USE) IV PRN (10:08)
[2018-08-05] MEDS: FOLIC ACID/VITAMIN B COMP W-C TABLET PO SCH (10:08)
[2018-08-05] MEDS: DOCUSATE SODIUM 100MG CAPSULE PO SCH ×3 (10:08→20:26)
[2018-08-05] MEDS: FAMOTIDINE 20MG TABLET PO SCH (10:08)
[2018-08-05] MEDS: LOSARTAN POTASSIUM 50 MG TABLET PO SCH ×2 (10:09→20:26)
[2018-08-05] MEDS: MINOXIDIL 2.5MG TABLET PO SCH (10:09)
[2018-08-05] MEDS: CALCIUM ACETATE 667MG CAPSULE PO SCH ×3 (10:09→18:11)
[2018-08-05] MEDS: CLONIDINE 0.1MG TABLET PO SCH ×2 (10:10→20:26)
[2018-08-05] MEDS ORDERED: MORPHINE SULFATE 4 MG/ML CPJ (NOT FOR IM USE) IV PRN ×2 (13:00→18:45)
[2018-08-05] MEDS ORDERED: LACTULOSE 20G/30ML UDC PO NR (14:00)
[2018-08-05 16:00] VITALS: BP 109/49
[2018-08-05 17:52] LABS: HEMATOCRIT. 33.1 % (42.0-52.0); HEMOGLOBIN. 10.6 g/dL (14.0-18.0); MEAN CORPUSCULAR HEMOGLOBIN 29.9 pg (28.0-32.0); MEAN CORPUSCULAR VOLUME 93.1 fL (80.0-94.0); MEAN PLATELET VOLUME 8.9 fl (7.4-10.4); PLATELET 224 x1000/uL (130-400); RED BLOOD CELL COUNT 3.56 mill/uL (4.7-6.1)
[2018-08-05 18:12] LABS: PLATELET ESTIMATE NORMAL
[2018-08-05 20:00] VITALS: BP 145/45
[2018-08-05] MEDS: ONDANSETRON HCL 4MG/2ML INJ IV PRN (20:26)
[2018-08-05] MEDS: HYDROCODONE/ACETAMINOPHEN 5/325MG TABLET PO PRN (20:27)
[2018-08-05] MEDS ORDERED: POLYETHYLENE GLYCOL 3350 (17GM) 1 DOSE PACK PO SCH (21:00)
[2018-08-06] VITALS: BP 139/56
[2018-08-06] MEDS: IPRATROPIUM/ALBUTEROL 0.5-3(2.5)MG/3ML NEB HHN SCH ×2 (01:28→12:42)
[2018-08-06] MEDS: HYDROCODONE/ACETAMINOPHEN 5/325MG TABLET PO PRN ×3 (02:41→16:58)
[2018-08-06 04:00] VITALS: BP 134/56
[2018-08-06] MEDS: HYDRALAZINE HCL 100MG TABLET PO SCH ×2 (06:21→13:46)
[2018-08-06 07:32] LABS: BASOPHILS % 0.1 % (0.0-2.0); EOSINOPHILS % 0.5 % (0.0-5.0); HEMATOCRIT. 32.6 % (42.0-52.0); HEMOGLOBIN. 10.5 g/dL (14.0-18.0); LYMPHOCYTES % 7.9 % (20.0-50.0); MEAN CORPUSCULAR HEMOGLOBIN 30.1 pg (28.0-32.0); MEAN CORPUSCULAR VOLUME 93.4 fL (80.0-94.0); MEAN PLATELET VOLUME 8.4 fl (7.4-10.4); MONOCYTES % 8.1 % (2.0-8.0); NEUTROPHILS % 83.4 % (40.0-76.0); PLATELET 225 x1000/uL (130-400); RED BLOOD CELL COUNT 3.49 mill/uL (4.7-6.1)
[2018-08-06 08:00] VITALS: BP 165/59
[2018-08-06] MEDS: INSULIN LISPRO 100 UNITS/ML SUBCUT SCH ×3 (08:10→17:20)
[2018-08-06] MEDS: BLOOD SUGAR DIAGNOSTIC STRIP TEST SCH ×3 (08:18→17:20)
[2018-08-06] MEDS: CLONIDINE 0.1MG TABLET PO SCH (08:19)
[2018-08-06] MEDS: DOCUSATE SODIUM 100MG CAPSULE PO SCH ×2 (08:19→16:59)
[2018-08-06] MEDS: FAMOTIDINE 20MG TABLET PO SCH (08:20)
[2018-08-06] MEDS: MINOXIDIL 2.5MG TABLET PO SCH (08:20)
[2018-08-06] MEDS: FOLIC ACID/VITAMIN B COMP W-C TABLET PO SCH (08:20)
[2018-08-06] MEDS: LOSARTAN POTASSIUM 50 MG TABLET PO SCH (08:20)
[2018-08-06] MEDS: CALCIUM ACETATE 667MG CAPSULE PO SCH ×2 (08:20→13:43)
[2018-08-06] MEDS ORDERED: BISACODYL 10MG SUPP PR SCH (09:00)
[2018-08-06] MEDS ORDERED: ZINC SULFATE 220 MG ( 50 ) CAPSULE PO SCH (09:00)
[2018-08-06] MEDS ORDERED: ASCORBIC ACID 250 MG TABLET PO SCH (09:00)
[2018-08-06] MEDS: INSULIN GLARGINE UD 100 UNITS/ML SYR SUBCUT SCH (10:41)
[2018-08-06 12:00] VITALS: BP 136/46
[2018-08-06 13:34] VITALS: BP 136/46
[2018-08-06 16:58] VITALS: BP 136/46
== END 2018-08-06 17:31 | DRG 471 ==
LOC: OR 05:33 → MICUNO 05:34 → 7WST 08-04 03:56
PROVIDERS: ADMIT Neurological Surgery; ATTEND Neurological Surgery
PROC: 5A1D70Z Performance of Urinary Filtration, Intermittent, Less than 6 Hours Per Day (ICD-10-PCS; 2018-08-01)
PROC: 0RG20A0 Fusion of 2 or more Cervical Vertebral Joints with Interbody Fusion Device, Anterior Approach, Anterior Column, Open Approach (ICD-10-PCS; principal; 2018-08-03)
PROC: 0RB30ZZ Excision of Cervical Vertebral Disc, Open Approach (ICD-10-PCS; 2018-08-03)
PROC: 4A11X4G Monitoring of Peripheral Nervous Electrical Activity, Intraoperative, External Approach (ICD-10-PCS; 2018-08-03)
PROC: 5A1D70Z Performance of Urinary Filtration, Intermittent, Less than 6 Hours Per Day (ICD-10-PCS; 2018-08-03)
PROC: 5A1D70Z Performance of Urinary Filtration, Intermittent, Less than 6 Hours Per Day (ICD-10-PCS; 2018-08-04)
DX: M48.02 Spinal stenosis, cervical region (principal); G82.50 Quadriplegia, unspecified; N18.6 End stage renal disease; M47.12 Other spondylosis with myelopathy, cervical region; I13.2 Hypertensive heart and chronic kidney disease with heart failure and with stage 5 chronic kidney disease, or end stage renal disease; L89.629 Pressure ulcer of left heel, unspecified stage; D63.8 Anemia in other chronic diseases classified elsewhere; E11.22 Type 2 diabetes mellitus with diabetic chronic kidney disease; E11.610 Type 2 diabetes mellitus with diabetic neuropathic arthropathy; J44.9 Chronic obstructive pulmonary disease, unspecified; E11.42 Type 2 diabetes mellitus with diabetic polyneuropathy; K59.00 Constipation, unspecified; M47.22 Other spondylosis with radiculopathy, cervical region; R13.10 Dysphagia, unspecified; L97.529 Non-pressure chronic ulcer of other part of left foot with unspecified severity; E11.621 Type 2 diabetes mellitus with foot ulcer; S14.109A Unspecified injury at unspecified level of cervical spinal cord, initial encounter; G89.29 Other chronic pain; I50.9 Heart failure, unspecified; X58.XXXA Exposure to other specified factors, initial encounter; Y93.89 Activity, other specified; Y92.89 Other specified places as the place of occurrence of the external cause; Y99.8 Other external cause status; Z99.2 Dependence on renal dialysis; Z79.4 Long term (current) use of insulin; Z89.422 Acquired absence of other left toe(s); Z98.1 Arthrodesis status
CPT/HCPCS: 36415; 72040; 72141; 80048; 80051; 80061; 82962; 83735; 84100; 84443; 84484; 86850; 86900; 88304; 88311; 92610; 93005; 93306; 93970; 94640; 95925; 95926; 95928; 95929; 97116; 97162; 97167; 97530; C1713; J0690; J1100; J1170; J1815; J2060; J2250; J2270; J2370; J2405; J2704; J2710; J3010; J3490; J7040; J7050; J7620

== ENCOUNTER 2018-08-06 17:35 | Inpatient (IN) | payer MEDICARE, MEDICAID ==
[~2018-08-06] VITALS: Ht 188 cm; Wt 111.1 kg
[2018-08-06 20:00] VITALS: BP 148/47
[2018-08-06] MEDS ORDERED: BISACODYL 5MG TABLET PO PRN (20:00)
[2018-08-06] MEDS ORDERED: MORPHINE SULFATE 4 MG/ML CPJ (NOT FOR IM USE) IV PRN (20:00)
[2018-08-06] MEDS ORDERED: DEXTROSE 50% WATER 50ML SYRINGE IV PRN (20:00)
[2018-08-06] MEDS ORDERED: IPRATROPIUM/ALBUTEROL 0.5-3(2.5)MG/3ML NEB HHN PRN (20:00)
[2018-08-06] MEDS ORDERED: DIPHENHYDRAMINE 50MG/ML VIAL IV PRN (20:00)
[2018-08-06] MEDS: IPRATROPIUM/ALBUTEROL 0.5-3(2.5)MG/3ML NEB HHN SCH (20:59)
[2018-08-06 21:00] VITALS: BP 148/47
[2018-08-06] MEDS: INSULIN LISPRO 100 UNITS/ML SUBCUT SCH (21:00)
[2018-08-06] MEDS: CLONIDINE 0.1MG TABLET PO SCH (21:00)
[2018-08-06] MEDS: POLYETHYLENE GLYCOL 3350 (17GM) 1 DOSE PACK PO SCH (21:00)
[2018-08-06] MEDS: LOSARTAN POTASSIUM 50 MG TABLET PO SCH (21:47)
[2018-08-06] MEDS: BLOOD SUGAR DIAGNOSTIC STRIP TEST SCH (21:48)
[2018-08-06] MEDS: HYDRALAZINE HCL 100MG TABLET PO SCH (22:00)
[2018-08-07] MEDS: IPRATROPIUM/ALBUTEROL 0.5-3(2.5)MG/3ML NEB HHN SCH ×4 (01:45→20:07)
[2018-08-07] MEDS: HYDROCODONE/ACETAMINOPHEN 5/325MG TABLET PO PRN ×6 (02:06→19:52)
[2018-08-07] MEDS: HYDRALAZINE HCL 100MG TABLET PO SCH ×3 (06:00→22:00)
[2018-08-07] MEDS: BLOOD SUGAR DIAGNOSTIC STRIP TEST SCH ×4 (06:25→21:00)
[2018-08-07 06:44] LABS: CHLORIDE 103 mEq/L (98-107)
[2018-08-07] MEDS: INSULIN LISPRO 100 UNITS/ML SUBCUT SCH ×4 (06:52→23:58)
[2018-08-07 06:54] LABS: BASOPHILS % 0.6 % (0.0-2.0); EOSINOPHILS % 2.1 % (0.0-5.0); HEMATOCRIT. 28.6 % (42.0-52.0); HEMOGLOBIN. 9.4 g/dL (14.0-18.0); LYMPHOCYTES % 13.4 % (20.0-50.0); MEAN CORPUSCULAR HEMOGLOBIN 30.7 pg (28.0-32.0); MEAN CORPUSCULAR VOLUME 93.2 fL (80.0-94.0); MEAN PLATELET VOLUME 8.1 fl (7.4-10.4); NEUTROPHILS % 73.9 % (40.0-76.0); PLATELET 232 x1000/uL (130-400); RED BLOOD CELL COUNT 3.07 mill/uL (4.7-6.1)
[2018-08-07 08:00] VITALS: BP 145/73
[2018-08-07] MEDS: BISACODYL 10MG SUPP PR SCH (08:43)
[2018-08-07] MEDS: ZINC SULFATE 220 MG ( 50 ) CAPSULE PO SCH (08:49)
[2018-08-07] MEDS: FAMOTIDINE 20MG TABLET PO SCH (08:49)
[2018-08-07] MEDS: CLONIDINE 0.1MG TABLET PO SCH ×2 (08:50→23:58)
[2018-08-07] MEDS: MINOXIDIL 2.5MG TABLET PO SCH (08:50)
[2018-08-07] MEDS: LOSARTAN POTASSIUM 50 MG TABLET PO SCH ×2 (08:51→21:00)
[2018-08-07] MEDS: DOCUSATE SODIUM 100MG CAPSULE PO SCH ×2 (08:51→17:02)
[2018-08-07] MEDS: ASCORBIC ACID 250 MG TABLET PO SCH (08:51)
[2018-08-07] MEDS: FOLIC ACID/VITAMIN B COMP W-C TABLET PO SCH (08:51)
[2018-08-07] MEDS: CALCIUM ACETATE 667MG CAPSULE PO SCH ×3 (08:51→17:02)
[2018-08-07] MEDS: INSULIN GLARGINE UD 100 UNITS/ML SYR SUBCUT SCH (10:39)
[2018-08-07] MEDS ORDERED: LEVOFLOXACIN 250MG TABLET PO NR (16:42)
[2018-08-07 16:50] LABS: CLARITY URINE TURBID (CLEAR); COLOR URINE YELLOW (YELLOW); KETONES URINE TRACE (NEGATIVE); LEUKOCYTE ESTERASE URINE 3+ (NEGATIVE); NITRITE URINE NEGATIVE (NEGATIVE); OCCULT BLOOD URINE TRACE (NEGATIVE); PROTEIN URINE 3+ (NEGATIVE); SPECIFIC GRAVITY URINE 1.016 (1.005-1.030); UROBILINOGEN URINE 0.2 E.U./dL (0.2-1.0)
[2018-08-07 20:30] VITALS: BP 144/73
[2018-08-07] MEDS: POLYETHYLENE GLYCOL 3350 (17GM) 1 DOSE PACK PO SCH (21:00)
[2018-08-07] MEDS ORDERED: LIDOCAINE HCL 1% 20ML VIAL (Pyxis) INJ INFIL PRN (21:15)
[2018-08-08 00:45] VITALS: BP 129/60
[2018-08-08] MEDS: IPRATROPIUM/ALBUTEROL 0.5-3(2.5)MG/3ML NEB HHN SCH ×3 (01:57→14:39)
[2018-08-08] MEDS: HYDRALAZINE HCL 100MG TABLET PO SCH ×3 (06:41→22:00)
[2018-08-08] MEDS: BISACODYL 10MG SUPP PR SCH (06:42)
[2018-08-08] MEDS: HYDROCODONE/ACETAMINOPHEN 5/325MG TABLET PO PRN ×4 (06:45→17:26)
[2018-08-08] MEDS: BLOOD SUGAR DIAGNOSTIC STRIP TEST SCH ×4 (06:45→20:08)
[2018-08-08] MEDS: INSULIN LISPRO 100 UNITS/ML SUBCUT SCH ×4 (06:46→20:22)
[2018-08-08 08:03] VITALS: BP 142/38
[2018-08-08] MEDS: CALCIUM ACETATE 667MG CAPSULE PO SCH ×3 (09:16→16:38)
[2018-08-08] MEDS: FAMOTIDINE 20MG TABLET PO SCH (09:16)
[2018-08-08] MEDS: ONDANSETRON HCL 4MG TABLET PO PRN ×2 (09:17→17:25)
[2018-08-08] MEDS: FOLIC ACID/VITAMIN B COMP W-C TABLET PO SCH (09:17)
[2018-08-08] MEDS: MINOXIDIL 2.5MG TABLET PO SCH (09:17)
[2018-08-08] MEDS: DOCUSATE SODIUM 100MG CAPSULE PO SCH ×2 (09:17→16:38)
[2018-08-08] MEDS: LOSARTAN POTASSIUM 50 MG TABLET PO SCH ×2 (09:17→20:07)
[2018-08-08] MEDS: ZINC SULFATE 220 MG ( 50 ) CAPSULE PO SCH (09:17)
[2018-08-08] MEDS: ASCORBIC ACID 250 MG TABLET PO SCH (09:19)
[2018-08-08] MEDS: CLONIDINE 0.1MG TABLET PO SCH ×2 (09:21→20:07)
[2018-08-08] MEDS: INSULIN GLARGINE UD 100 UNITS/ML SYR SUBCUT SCH (10:02)
[2018-08-08] MEDS: LACTULOSE 20G/30ML UDC PO SCH ×2 (15:30→20:06)
[2018-08-08] MEDS ORDERED: HYDROCODONE/ACETAMINOPHEN 10/325MG TABLET PO PRN (17:30)
[2018-08-08 20:00] VITALS: BP 157/42
[2018-08-08] MEDS: MUPIROCIN 2% OINT 22GM NS SCH (20:07)
[2018-08-08] MEDS: POLYETHYLENE GLYCOL 3350 (17GM) 1 DOSE PACK PO SCH (20:07)
[2018-08-08] MEDS: METHADONE HCL 5MG TABLET PO SCH (22:00)
[2018-08-09] MEDS: LACTULOSE 20G/30ML UDC PO SCH ×7 (04:00→16:38)
[2018-08-09] MEDS: METHADONE HCL 5MG TABLET PO SCH ×3 (06:00→22:34)
[2018-08-09] MEDS: HYDRALAZINE HCL 100MG TABLET PO SCH ×2 (06:20→14:00)
[2018-08-09 06:25] LABS: BASOPHILS % 0.2 % (0.0-2.0); EOSINOPHILS % 0.6 % (0.0-5.0); HEMATOCRIT. 29.1 % (42.0-52.0); HEMOGLOBIN. 9.5 g/dL (14.0-18.0); LYMPHOCYTES % 13.2 % (20.0-50.0); MEAN CORPUSCULAR HEMOGLOBIN 30.1 pg (28.0-32.0); MEAN CORPUSCULAR VOLUME 91.9 fL (80.0-94.0); MEAN PLATELET VOLUME 7.9 fl (7.4-10.4); MONOCYTES % 10.1 % (2.0-8.0); NEUTROPHILS % 75.9 % (40.0-76.0); PLATELET 243 x1000/uL (130-400); RED BLOOD CELL COUNT 3.17 mill/uL (4.7-6.1); RED CELL DISTRIBUTION WIDTH 14.9 % (11.6-14.6)
[2018-08-09] MEDS: BLOOD SUGAR DIAGNOSTIC STRIP TEST SCH ×4 (06:25→21:05)
[2018-08-09 06:52] LABS: PHOSPHORUS 4.7 mg/dL (2.5-4.9)
[2018-08-09 06:53] LABS: FOLIC ACID (FOLATE) SERUM >20 ng/mL ng/mL (>5.38)
[2018-08-09] MEDS: INSULIN LISPRO 100 UNITS/ML SUBCUT SCH ×4 (06:55→22:40)
[2018-08-09 07:09] LABS: VITAMIN B12 SERUM 928 pg/mL (211-911)
[2018-08-09 08:20] VITALS: BP 151/55
[2018-08-09] MEDS: ASCORBIC ACID 250 MG TABLET PO SCH (08:28)
[2018-08-09] MEDS: DOCUSATE SODIUM 100MG CAPSULE PO SCH ×2 (08:28→16:31)
[2018-08-09] MEDS: CALCIUM ACETATE 667MG CAPSULE PO SCH ×3 (08:28→16:31)
[2018-08-09] MEDS: MUPIROCIN 2% OINT 22GM NS SCH ×2 (08:28→20:56)
[2018-08-09] MEDS: FOLIC ACID/VITAMIN B COMP W-C TABLET PO SCH (08:28)
[2018-08-09] MEDS: ZINC SULFATE 220 MG ( 50 ) CAPSULE PO SCH (08:28)
[2018-08-09] MEDS: FAMOTIDINE 20MG TABLET PO SCH (08:28)
[2018-08-09] MEDS: ONDANSETRON HCL 4MG TABLET PO PRN (08:28)
[2018-08-09] MEDS: MINOXIDIL 2.5MG TABLET PO SCH (09:00)
[2018-08-09] MEDS: CLONIDINE 0.1MG TABLET PO SCH ×2 (09:00→20:57)
[2018-08-09] MEDS: LOSARTAN POTASSIUM 50 MG TABLET PO SCH ×2 (09:00→22:35)
[2018-08-09] MEDS: BISACODYL 10MG SUPP PR SCH (09:00)
[2018-08-09] MEDS: INSULIN GLARGINE UD 100 UNITS/ML SYR SUBCUT SCH (10:50)
[2018-08-09 11:19] LABS: FERRITIN 1363 ng/mL (22-322)
[2018-08-09] MEDS ORDERED: MEROPENEM 500 MG in SODIUM CHLORIDE 0.9% 50 ML IV SCH (16:00)
[2018-08-09] MEDS: PANTOPRAZOLE 40MG DR TABLET PO SCH (17:00)
[2018-08-09] MEDS: CLONIDINE 0.1MG TABLET PO PRN (18:54)
[2018-08-09 20:00] VITALS: BP 185/60
[2018-08-09 20:30] VITALS: BP 149/54
[2018-08-09] MEDS: IPRATROPIUM/ALBUTEROL 0.5-3(2.5)MG/3ML NEB HHN SCH (20:55)
[2018-08-09] MEDS: POLYETHYLENE GLYCOL 3350 (17GM) 1 DOSE PACK PO SCH (20:56)
[2018-08-09] MEDS: MEROPENEM 500 MG in SODIUM CHLORIDE 0.9% 50 ML IV SCH (20:56)
[2018-08-10] MEDS: HYDRALAZINE HCL 100MG TABLET PO SCH ×4 (00:27→22:40)
[2018-08-10] MEDS: IPRATROPIUM/ALBUTEROL 0.5-3(2.5)MG/3ML NEB HHN SCH ×4 (02:30→21:00)
[2018-08-10] MEDS: LACTULOSE 20G/30ML UDC PO SCH ×6 (04:00→22:39)
[2018-08-10] MEDS: METHADONE HCL 5MG TABLET PO SCH ×3 (06:07→22:41)
[2018-08-10] MEDS: PANTOPRAZOLE 40MG DR TABLET PO SCH (06:07)
[2018-08-10] MEDS: BLOOD SUGAR DIAGNOSTIC STRIP TEST SCH ×4 (06:07→21:15)
[2018-08-10] MEDS: INSULIN LISPRO 100 UNITS/ML SUBCUT SCH ×4 (06:09→21:00)
[2018-08-10 07:22] LABS: BASOPHILS % 0.6 % (0.0-2.0); EOSINOPHILS % 1.3 % (0.0-5.0); HEMATOCRIT. 31.8 % (42.0-52.0); HEMOGLOBIN. 10.2 g/dL (14.0-18.0); LYMPHOCYTES % 16.5 % (20.0-50.0); MEAN CORPUSCULAR HEMOGLOBIN 29.7 pg (28.0-32.0); MEAN CORPUSCULAR VOLUME 92.3 fL (80.0-94.0); MONOCYTES % 10.9 % (2.0-8.0); NEUTROPHILS % 70.7 % (40.0-76.0); PLATELET 272 x1000/uL (130-400); RED BLOOD CELL COUNT 3.45 mill/uL (4.7-6.1); RED CELL DISTRIBUTION WIDTH 14.4 % (11.6-14.6)
[2018-08-10 07:29] LABS: T4 FREE 1.38 ng/dL (0.76-1.46)
[2018-08-10 08:09] VITALS: BP 153/41
[2018-08-10] MEDS: BISACODYL 10MG SUPP PR SCH (09:00)
[2018-08-10] MEDS: MUPIROCIN 2% OINT 22GM NS SCH ×2 (09:54→21:13)
[2018-08-10] MEDS: CALCIUM ACETATE 667MG CAPSULE PO SCH ×3 (09:55→16:31)
[2018-08-10] MEDS: DOCUSATE SODIUM 100MG CAPSULE PO SCH ×2 (09:55→16:31)
[2018-08-10] MEDS: ASCORBIC ACID 250 MG TABLET PO SCH (09:56)
[2018-08-10] MEDS: MINOXIDIL 2.5MG TABLET PO SCH (09:56)
[2018-08-10] MEDS: FOLIC ACID/VITAMIN B COMP W-C TABLET PO SCH (09:56)
[2018-08-10] MEDS: LOSARTAN POTASSIUM 50 MG TABLET PO SCH ×2 (09:56→21:15)
[2018-08-10] MEDS: ZINC SULFATE 220 MG ( 50 ) CAPSULE PO SCH (09:56)
[2018-08-10] MEDS: CLONIDINE 0.1MG TABLET PO SCH ×2 (09:57→21:16)
[2018-08-10] MEDS: INSULIN GLARGINE UD 100 UNITS/ML SYR SUBCUT SCH (11:15)
[2018-08-10 20:00] VITALS: BP 165/54
[2018-08-10] MEDS ORDERED: NA PHOS,M-B/NA PHOS,DI-BA ENEMA 118ML PR NR (21:00)
[2018-08-10] MEDS: MEROPENEM 500 MG in SODIUM CHLORIDE 0.9% 50 ML IV SCH (21:13)
[2018-08-10] MEDS: POLYETHYLENE GLYCOL 3350 (17GM) 1 DOSE PACK PO SCH (21:14)
[2018-08-11] MEDS: IPRATROPIUM/ALBUTEROL 0.5-3(2.5)MG/3ML NEB HHN SCH ×4 (02:00→21:46)
[2018-08-11] MEDS: HYDRALAZINE HCL 100MG TABLET PO SCH ×3 (05:57→22:03)
[2018-08-11] MEDS: METHADONE HCL 5MG TABLET PO SCH ×3 (05:58→22:02)
[2018-08-11] MEDS: LACTULOSE 20G/30ML UDC PO SCH ×3 (06:00→20:49)
[2018-08-11] MEDS: PANTOPRAZOLE 40MG DR TABLET PO SCH (06:02)
[2018-08-11] MEDS: BLOOD SUGAR DIAGNOSTIC STRIP TEST SCH ×4 (06:02→21:01)
[2018-08-11] MEDS: INSULIN LISPRO 100 UNITS/ML SUBCUT SCH ×4 (06:03→21:01)
[2018-08-11 08:17] VITALS: BP 151/48
[2018-08-11] MEDS: BISACODYL 10MG SUPP PR SCH (08:34)
[2018-08-11] MEDS: ASCORBIC ACID 250 MG TABLET PO SCH (08:45)
[2018-08-11] MEDS: FOLIC ACID/VITAMIN B COMP W-C TABLET PO SCH (08:45)
[2018-08-11] MEDS: DOCUSATE SODIUM 100MG CAPSULE PO SCH ×2 (08:45→16:59)
[2018-08-11] MEDS: MINOXIDIL 2.5MG TABLET PO SCH (08:45)
[2018-08-11] MEDS: CALCIUM ACETATE 667MG CAPSULE PO SCH ×3 (08:45→16:59)
[2018-08-11] MEDS: LOSARTAN POTASSIUM 50 MG TABLET PO SCH ×2 (08:45→20:49)
[2018-08-11] MEDS: CLONIDINE 0.1MG TABLET PO SCH ×2 (08:45→20:49)
[2018-08-11] MEDS: ZINC SULFATE 220 MG ( 50 ) CAPSULE PO SCH (08:45)
[2018-08-11] MEDS: MUPIROCIN 2% OINT 22GM NS SCH ×2 (08:46→20:50)
[2018-08-11] MEDS: INSULIN GLARGINE UD 100 UNITS/ML SYR SUBCUT SCH (10:53)
[2018-08-11 20:00] VITALS: BP 166/57
[2018-08-11] MEDS: MEROPENEM 500 MG in SODIUM CHLORIDE 0.9% 50 ML IV SCH (20:48)
[2018-08-11] MEDS: POLYETHYLENE GLYCOL 3350 (17GM) 1 DOSE PACK PO SCH (20:48)
[2018-08-12] MEDS: IPRATROPIUM/ALBUTEROL 0.5-3(2.5)MG/3ML NEB HHN SCH ×3 (01:00→12:00)
[2018-08-12] MEDS: LACTULOSE 20G/30ML UDC PO SCH ×5 (04:00→21:00)
[2018-08-12] MEDS: PANTOPRAZOLE 40MG DR TABLET PO SCH (06:19)
[2018-08-12] MEDS: METHADONE HCL 5MG TABLET PO SCH ×3 (06:19→22:56)
[2018-08-12] MEDS: HYDRALAZINE HCL 100MG TABLET PO SCH ×3 (06:19→22:56)
[2018-08-12] MEDS: BLOOD SUGAR DIAGNOSTIC STRIP TEST SCH ×4 (06:30→21:22)
[2018-08-12] MEDS: CLONIDINE 0.1MG TABLET PO PRN (06:33)
[2018-08-12 07:15] LABS: BASOPHILS % 0.5 % (0.0-2.0); EOSINOPHILS % 2.5 % (0.0-5.0); HEMATOCRIT. 32.9 % (42.0-52.0); HEMOGLOBIN. 10.7 g/dL (14.0-18.0); LYMPHOCYTES % 16.8 % (20.0-50.0); MEAN CORPUSCULAR HEMOGLOBIN 29.9 pg (28.0-32.0); MEAN CORPUSCULAR VOLUME 92.1 fL (80.0-94.0); MEAN PLATELET VOLUME 7.7 fl (7.4-10.4); MONOCYTES % 7.8 % (2.0-8.0); NEUTROPHILS % 72.4 % (40.0-76.0); PLATELET 263 x1000/uL (130-400); RED BLOOD CELL COUNT 3.57 mill/uL (4.7-6.1); RED CELL DISTRIBUTION WIDTH 14.5 % (11.6-14.6)
[2018-08-12 08:00] VITALS: BP 146/44
[2018-08-12] MEDS: INSULIN LISPRO 100 UNITS/ML SUBCUT SCH ×4 (09:00→21:00)
[2018-08-12] MEDS: CLONIDINE 0.1MG TABLET PO SCH ×2 (09:00→20:23)
[2018-08-12] MEDS: LOSARTAN POTASSIUM 50 MG TABLET PO SCH ×2 (09:00→20:23)
[2018-08-12] MEDS: MINOXIDIL 2.5MG TABLET PO SCH (09:00)
[2018-08-12] MEDS: ASCORBIC ACID 250 MG TABLET PO SCH (09:45)
[2018-08-12] MEDS: ZINC SULFATE 220 MG ( 50 ) CAPSULE PO SCH (09:45)
[2018-08-12] MEDS: FOLIC ACID/VITAMIN B COMP W-C TABLET PO SCH (09:45)
[2018-08-12] MEDS: DOCUSATE SODIUM 100MG CAPSULE PO SCH ×2 (09:45→19:12)
[2018-08-12] MEDS: BISACODYL 5MG TABLET PO SCH (09:45)
[2018-08-12] MEDS: CALCIUM ACETATE 667MG CAPSULE PO SCH ×3 (09:46→19:12)
[2018-08-12] MEDS: INSULIN GLARGINE UD 100 UNITS/ML SYR SUBCUT SCH (09:51)
[2018-08-12] MEDS: MUPIROCIN 2% OINT 22GM NS SCH ×2 (09:57→21:36)
[2018-08-12 20:00] VITALS: BP 199/78
[2018-08-12] MEDS: ONDANSETRON HCL 4MG/2ML INJ IV PRN (20:22)
[2018-08-12] MEDS: POLYETHYLENE GLYCOL 3350 (17GM) 1 DOSE PACK PO SCH (21:00)
[2018-08-12] MEDS: MEROPENEM 500 MG in SODIUM CHLORIDE 0.9% 50 ML IV SCH (21:36)
[2018-08-12 23:20] VITALS: BP 178/79
[2018-08-13] MEDS: BLOOD SUGAR DIAGNOSTIC STRIP TEST SCH ×3 (05:43→17:00)
[2018-08-13] MEDS: INSULIN LISPRO 100 UNITS/ML SUBCUT SCH ×3 (05:43→17:00)
[2018-08-13] MEDS: HYDRALAZINE HCL 100MG TABLET PO SCH ×2 (05:49→15:13)
[2018-08-13] MEDS: PANTOPRAZOLE 40MG DR TABLET PO SCH (05:50)
[2018-08-13] MEDS: METHADONE HCL 5MG TABLET PO SCH ×2 (05:50→15:12)
[2018-08-13 08:01] VITALS: BP 169/51
[2018-08-13] MEDS: DOCUSATE SODIUM 100MG CAPSULE PO SCH ×2 (08:41→17:00)
[2018-08-13] MEDS: CLONIDINE 0.1MG TABLET PO SCH ×2 (08:41→19:41)
[2018-08-13] MEDS: LOSARTAN POTASSIUM 50 MG TABLET PO SCH ×2 (08:42→19:41)
[2018-08-13] MEDS: ZINC SULFATE 220 MG ( 50 ) CAPSULE PO SCH (08:42)
[2018-08-13] MEDS: BISACODYL 5MG TABLET PO SCH (08:42)
[2018-08-13] MEDS: CALCIUM ACETATE 667MG CAPSULE PO SCH ×3 (08:42→17:00)
[2018-08-13] MEDS: ASCORBIC ACID 250 MG TABLET PO SCH (08:43)
[2018-08-13] MEDS: FOLIC ACID/VITAMIN B COMP W-C TABLET PO SCH (08:43)
[2018-08-13] MEDS: LACTULOSE 20G/30ML UDC PO SCH ×3 (08:47→17:00)
[2018-08-13] MEDS: MUPIROCIN 2% OINT 22GM NS SCH (08:47)
[2018-08-13] MEDS: MINOXIDIL 2.5MG TABLET PO SCH (08:47)
[2018-08-13] MEDS: INSULIN GLARGINE UD 100 UNITS/ML SYR SUBCUT SCH (10:21)
[2018-08-13 11:44] VITALS: BP 139/68
[2018-08-13] MEDS: ONDANSETRON HCL 4MG/2ML INJ IV PRN (12:58)
[2018-08-13] MEDS: CLONIDINE 0.1MG TABLET PO PRN (17:37)
[2018-08-13 19:40] VITALS: BP 158/52
[2018-08-13 20:00] VITALS: BP 158/52
[2018-08-14 15:10] LABS: 25-HYDROXY VITAMIN D3 24 ng/mL (.)
== END 2018-08-13 20:25 | DRG 91 ==
PROVIDERS: ADMIT Physical Medicine & Rehabilitation Spinal Cord Injury Medicine; ATTEND Internal Medicine Nephrology
DX: G95.29 Other cord compression (principal); G82.50 Quadriplegia, unspecified; N18.6 End stage renal disease; I13.2 Hypertensive heart and chronic kidney disease with heart failure and with stage 5 chronic kidney disease, or end stage renal disease; K59.2 Neurogenic bowel, not elsewhere classified; N39.0 Urinary tract infection, site not specified; M47.12 Other spondylosis with myelopathy, cervical region; M48.02 Spinal stenosis, cervical region; R13.10 Dysphagia, unspecified; R26.9 Unspecified abnormalities of gait and mobility; R53.81 Other malaise; J44.9 Chronic obstructive pulmonary disease, unspecified; E11.621 Type 2 diabetes mellitus with foot ulcer; I50.9 Heart failure, unspecified; N31.9 Neuromuscular dysfunction of bladder, unspecified; E11.22 Type 2 diabetes mellitus with diabetic chronic kidney disease; G89.4 Chronic pain syndrome; L97.529 Non-pressure chronic ulcer of other part of left foot with unspecified severity; E11.610 Type 2 diabetes mellitus with diabetic neuropathic arthropathy; D63.8 Anemia in other chronic diseases classified elsewhere; E11.42 Type 2 diabetes mellitus with diabetic polyneuropathy; E78.00 Pure hypercholesterolemia, unspecified; I25.10 Atherosclerotic heart disease of native coronary artery without angina pectoris; K21.9 Gastro-esophageal reflux disease without esophagitis; L89.629 Pressure ulcer of left heel, unspecified stage; N40.0 Benign prostatic hyperplasia without lower urinary tract symptoms; N45.1 Epididymitis; M47.22 Other spondylosis with radiculopathy, cervical region; Z16.12 Extended spectrum beta lactamase (ESBL) resistance; Z16.23 Resistance to quinolones and fluoroquinolones; Z99.2 Dependence on renal dialysis; Z89.422 Acquired absence of other left toe(s); Z22.322 Carrier or suspected carrier of Methicillin resistant Staphylococcus aureus; Z98.1 Arthrodesis status; Z79.4 Long term (current) use of insulin
CPT/HCPCS: 36415; 74018; 80048; 82306; 82607; 82728; 82746; 82962; 83036; 83540; 83550; 83735; 84100; 84134; 84439; 84443; 84481; 87077; 87186; 92610; 93970; 94640; 97110; 97112; 97116; 97150; 97162; 97166; 97530; 97535; J1815; J2185; J2405; J7040; J7620; L0172; Q0162

== ENCOUNTER 2019-01-03 20:02 | Emergency (ER) | payer MEDICARE, MEDICAID ==
[~2019-01-03] VITALS: Ht 170.2 cm; Wt 78.0 kg
[~2019-01-03 20:02] MED LIST changes: -CYCL30DR BOTHEYE; -ENAL20TA PO; -GABA400C PO; -HYDR-4135 PO; -INSU100I28 SQ; -LORA-249 PO; -METH5TAB2 PO; -OLOP2.5D BOTHEYE; -OMEP20CA10 PO; -SENN8.6T60 PO; -SERT50TA PO; -TAMS-11 PO
[2019-01-03] MEDS ORDERED: SODIUM CHLORIDE 0.9% 1000ML BAG (SEPSIS BOLUS) IV ONE (20:30)
[2019-01-03] MEDS ORDERED: PIPERACILLIN/TAZ 3.375G PREMIX 50 ML IV ONE (20:30)
[2019-01-03] MEDS ORDERED: VANCOMYCIN 1 G PREMIX 200 ML IV SCH (20:30)
[2019-01-03 21:05] LABS: CHLORIDE 104 mEq/L (98-107); HEMATOCRIT. 32.1 % (42.0-52.0); HEMOGLOBIN. 10.5 g/dL (14.0-18.0); MEAN CORPUSCULAR HEMOGLOBIN 28.8 pg (28.0-32.0); MEAN PLATELET VOLUME 7.9 fl (7.4-10.4); PLATELET 242 x1000/uL (130-400); RED BLOOD CELL COUNT 3.64 mill/uL (4.7-6.1); RED CELL DISTRIBUTION WIDTH 18.6 % (11.6-14.6)
[2019-01-03 21:16] LABS: INR 1.1; PARTIAL THROMBOPLASTIN TIME 31.7 sec (23.4-31.0)
[2019-01-03 21:24] LABS: PLATELET ESTIMATE NORMAL
[2019-01-04 04:35] VITALS: BP 170/57
== END 2019-01-04 05:00 | disposition home or self-care (01) ==
LOC: ER 20:02
DX: L89.623 Pressure ulcer of left heel, stage 3 (principal); E11.621 Type 2 diabetes mellitus with foot ulcer; N40.0 Benign prostatic hyperplasia without lower urinary tract symptoms; K21.9 Gastro-esophageal reflux disease without esophagitis; E78.00 Pure hypercholesterolemia, unspecified; E11.22 Type 2 diabetes mellitus with diabetic chronic kidney disease; I13.0 Hypertensive heart and chronic kidney disease with heart failure and stage 1 through stage 4 chronic kidney disease, or unspecified chronic kidney disease; N18.9 Chronic kidney disease, unspecified; I50.9 Heart failure, unspecified
CPT/HCPCS: 36415; 71045; 73610; 80053; 83605; 84145; 84484; 85025; 85610; 85730; 87040; 87070; 87077; 87205; 93005; 96365; 96366; 96368; 99284; J2543; J3370; J7030

== ENCOUNTER 2019-01-15 13:28 | Inpatient (IN) | payer MEDICARE, MEDICAID ==
[~2019-01-15] VITALS: Ht 182.9 cm; Wt 104.8 kg
[2019-01-15 14:53] LABS: HEMATOCRIT. 28.1 % (42.0-52.0); HEMOGLOBIN. 9.2 g/dL (14.0-18.0); MEAN CORPUSCULAR HEMOGLOBIN 28.8 pg (28.0-32.0); MEAN CORPUSCULAR VOLUME 88.1 fL (80.0-94.0); MEAN PLATELET VOLUME 7.5 fl (7.4-10.4); PLATELET 299 x1000/uL (130-400); RED BLOOD CELL COUNT 3.19 mill/uL (4.7-6.1); RED CELL DISTRIBUTION WIDTH 18.5 % (11.6-14.6)
[2019-01-15 14:55] LABS: CHLORIDE 101 mEq/L (98-107)
[2019-01-15 15:18] LABS: PLATELET ESTIMATE NORMAL
[2019-01-15] MEDS ORDERED: FUROSEMIDE 100MG/10ML VIAL IV STA (15:31)
[2019-01-15] MEDS ORDERED: ALBUTEROL (0.083%) 2.5MG/3ML NEB HHN ONE (15:45)
[2019-01-15] MEDS ORDERED: SODIUM BICARBONATE 8.4% 1 MEQ/ML 50ML SYR IV ONE (15:45)
[2019-01-15] MEDS ORDERED: INSULIN REGULAR (HUMULIN R) 300UNITS/3ML IV ONE (15:45)
[2019-01-15] MEDS ORDERED: CLINDAMYCIN 600 MG in DEXTROSE 5% WATER 50 ML IV ONE (15:45)
[2019-01-15] MEDS ORDERED: DEXTROSE 50% WATER 50ML SYRINGE IV ONE (15:45)
[2019-01-15] MEDS ORDERED: DOCUSATE SODIUM 100MG CAPSULE PO PRN (16:15)
[2019-01-15] MEDS ORDERED: PIPERACILLIN/TAZ 3.375G PREMIX 50 ML IV SCH (16:15)
[2019-01-15] MEDS ORDERED: ACETAMINOPHEN 325MG TABLET PO PRN (16:15)
[2019-01-15] MEDS: SODIUM CHLORIDE 0.45% 1,000 ML IV SCH (16:24)
[2019-01-15] MEDS ORDERED: CLINDAMYCIN 600MG PREMIX 50 ML IV SCH (18:00)
[2019-01-15] MEDS ORDERED: PIPERACILLIN/TAZ 2.25G PREMIX 50 ML IV SCH (19:00)
[2019-01-15 23:54] VITALS: BP 163/60
[2019-01-16] VITALS: BP 163/60
[2019-01-16 04:00] VITALS: BP 149/51
[2019-01-16] MEDS ORDERED: LACT1CAP60 MT (04:18)
[2019-01-16] MEDS ORDERED: BISA10SU8 PO (04:18)
[2019-01-16] MEDS ORDERED: HYDR100T26 MT (04:18)
[2019-01-16] MEDS ORDERED: LACT10SO7 PO (04:18)
[2019-01-16] MEDS ORDERED: BISA-81 PO (04:18)
[2019-01-16] MEDS ORDERED: INSU100I28 SQ (04:18)
[2019-01-16] MEDS ORDERED: CLON0.1T PO (04:18)
[2019-01-16] MEDS ORDERED: LORA-249 MT (04:18)
[2019-01-16] MEDS ORDERED: MET5 MT (04:27)
[2019-01-16] MEDS ORDERED: ONDA4TAB11 PO (04:27)
[2019-01-16] MEDS ORDERED: PANT40TA4 MT (04:27)
[2019-01-16] MEDS ORDERED: GABA100C MT (04:27)
[2019-01-16] MEDS ORDERED: NEPVIT MT (04:27)
[2019-01-16] MEDS ORDERED: POLY17PO28 PO (04:27)
[2019-01-16] MEDS ORDERED: MINO2.5T2 PO (04:27)
[2019-01-16] MEDS ORDERED: LOSA50TA41 MT (04:27)
[2019-01-16] MEDS ORDERED: POLY15DR55 EACHEYE (04:27)
[2019-01-16] MEDS ORDERED: DEXTROSE 50% WATER 50ML SYRINGE IV PRN (04:45)
[2019-01-16] MEDS ORDERED: VANCOMYCIN 1500MG in DEXTROSE 5% WATER 250ML IV NR (06:00)
[2019-01-16] MEDS: INSULIN LISPRO 100 UNITS/ML SUBCUT SCH ×4 (06:01→21:37)
[2019-01-16] MEDS: BLOOD SUGAR DIAGNOSTIC STRIP TEST SCH ×4 (06:03→21:37)
[2019-01-16 06:58] LABS: HEMATOCRIT. 27.2 % (42.0-52.0); MEAN CORPUSCULAR HEMOGLOBIN 28.8 pg (28.0-32.0); MEAN CORPUSCULAR VOLUME 87.3 fL (80.0-94.0); MEAN PLATELET VOLUME 7.8 fl (7.4-10.4); PLATELET 306 x1000/uL (130-400); RED BLOOD CELL COUNT 3.11 mill/uL (4.7-6.1); RED CELL DISTRIBUTION WIDTH 18.5 % (11.6-14.6)
[2019-01-16 07:23] LABS: CHLORIDE 101 mEq/L (98-107)
[2019-01-16 07:39] LABS: HDL CHOLESTEROL 69 mg/dL (40-59)
[2019-01-16 07:42] LABS: LDL CHOLESTEROL 46 mg/dL (5-100)
[2019-01-16 08:00] VITALS: BP 139/44
[2019-01-16] MEDS: MINOXIDIL 2.5MG TABLET PO SCH (09:31)
[2019-01-16] MEDS: CALCIUM ACETATE 667MG CAPSULE PO SCH ×3 (09:31→17:20)
[2019-01-16] MEDS: FOLIC ACID/VITAMIN B COMP W-C TABLET PO SCH (09:32)
[2019-01-16] MEDS: HYDROMORPHONE HCL/PF 2MG/ML CPJ IV PRN ×2 (09:33→21:24)
[2019-01-16] MEDS: PIPERACILLIN/TAZ 2.25G PREMIX 50 ML IV SCH ×2 (10:17→21:11)
[2019-01-16 12:00] VITALS: BP 151/48
[2019-01-16 13:28] LABS: PLATELET ESTIMATE NORMAL
[2019-01-16 16:00] VITALS: BP 137/62
[2019-01-16] MEDS: ONDANSETRON HCL 4MG/2ML INJ IV PRN (17:20)
[2019-01-16] MEDS: SODIUM CHLORIDE 0.45% 1,000 ML IV SCH (17:26)
[2019-01-16 20:00] VITALS: BP 150/54
[2019-01-16] MEDS: EPOETIN ALFA 10000UNITS/ML VIAL SUBCUT SCH (21:11)
[2019-01-16] MEDS: ATORVASTATIN CALCIUM 10MG TABLET PO SCH (21:12)
[2019-01-17] VITALS: BP 156/54
[2019-01-17 04:00] VITALS: BP 162/51
[2019-01-17] MEDS: ONDANSETRON HCL 4MG/2ML INJ IV PRN ×2 (06:42→14:02)
[2019-01-17] MEDS: INSULIN LISPRO 100 UNITS/ML SUBCUT SCH ×4 (06:46→21:49)
[2019-01-17] MEDS: BLOOD SUGAR DIAGNOSTIC STRIP TEST SCH ×4 (06:46→21:00)
[2019-01-17 07:39] LABS: HEMATOCRIT. 30.1 % (42.0-52.0); HEMOGLOBIN. 9.6 g/dL (14.0-18.0); MEAN CORPUSCULAR HEMOGLOBIN 28.4 pg (28.0-32.0); MEAN CORPUSCULAR VOLUME 88.4 fL (80.0-94.0); PLATELET 360 x1000/uL (130-400); RED CELL DISTRIBUTION WIDTH 18.8 % (11.6-14.6)
[2019-01-17] MEDS: CALCIUM ACETATE 667MG CAPSULE PO SCH ×3 (07:40→17:23)
[2019-01-17 08:00] VITALS: BP 165/46
[2019-01-17] MEDS: FOLIC ACID/VITAMIN B COMP W-C TABLET PO SCH (09:00)
[2019-01-17] MEDS: MINOXIDIL 2.5MG TABLET PO SCH ×2 (09:00→09:32)
[2019-01-17] MEDS: SODIUM CHLORIDE 0.45% 1,000 ML IV SCH ×2 (09:29→13:54)
[2019-01-17] MEDS: PIPERACILLIN/TAZ 2.25G PREMIX 50 ML IV SCH ×3 (09:30→22:03)
[2019-01-17 11:30] VITALS: BP 167/51
[2019-01-17] MEDS ORDERED: SODIUM BICARBONATE 4% (2.4MEQ) 5ML VIAL IV ONE (11:54)
[2019-01-17] MEDS ORDERED: LIDOCAINE HCL 1% 20ML VIAL (Pyxis) INJ ONE (11:54)
[2019-01-17] MEDS: LORAZEPAM 2MG/ML CPJ IV PRN (14:03)
[2019-01-17 14:55] LABS: INR 1.2; PARTIAL THROMBOPLASTIN TIME 32.3 sec (23.4-31.0); PROTHROMBIN TIME 12.3 sec (9.6-11.0)
[2019-01-17] MEDS ORDERED: VANCOMYCIN 750 MG PREMIX 150 ML IV SCH (15:00)
[2019-01-17 16:00] VITALS: BP 138/69
[2019-01-17] MEDS ORDERED: LIDOCAINE HCL/PF 1% 10 MG/ML 5ML VIAL IJ SCH (18:30)
[2019-01-17 20:00] VITALS: BP 174/61
[2019-01-17] MEDS: ATORVASTATIN CALCIUM 10MG TABLET PO SCH (22:03)
[2019-01-17] MEDS: CLONIDINE 0.1MG TABLET PO PRN (22:03)
[2019-01-18] VITALS: BP 134/44
[2019-01-18 04:00] VITALS: BP 158/46
[2019-01-18] MEDS: BLOOD SUGAR DIAGNOSTIC STRIP TEST SCH ×4 (06:27→21:38)
[2019-01-18] MEDS: INSULIN LISPRO 100 UNITS/ML SUBCUT SCH ×4 (06:36→21:37)
[2019-01-18 07:48] LABS: BASOPHILS % 0.9 % (0.0-2.0); EOSINOPHILS % 0.8 % (0.0-5.0); HEMATOCRIT. 26.2 % (42.0-52.0); HEMOGLOBIN. 8.6 g/dL (14.0-18.0); LYMPHOCYTES % 9.7 % (20.0-50.0); MEAN CORPUSCULAR VOLUME 87.9 fL (80.0-94.0); MEAN PLATELET VOLUME 7.9 fl (7.4-10.4); MONOCYTES % 8.2 % (2.0-8.0); NEUTROPHILS % 80.4 % (40.0-76.0); PLATELET 297 x1000/uL (130-400); RED BLOOD CELL COUNT 2.98 mill/uL (4.7-6.1); RED CELL DISTRIBUTION WIDTH 18.6 % (11.6-14.6)
[2019-01-18 08:00] VITALS: BP 138/42
[2019-01-18] MEDS: FOLIC ACID/VITAMIN B COMP W-C TABLET PO SCH (08:56)
[2019-01-18] MEDS: CALCIUM ACETATE 667MG CAPSULE PO SCH ×3 (08:56→17:16)
[2019-01-18] MEDS: PIPERACILLIN/TAZ 2.25G PREMIX 50 ML IV SCH ×2 (09:00→21:16)
[2019-01-18] MEDS: LORAZEPAM 2MG/ML CPJ IV PRN ×2 (09:01→21:32)
[2019-01-18 09:25] LABS: PLATELET ESTIMATE NORMAL
[2019-01-18 12:00] VITALS: BP 172/59
[2019-01-18] MEDS: CLONIDINE 0.1MG TABLET PO PRN (12:35)
[2019-01-18 16:00] VITALS: BP 154/49
[2019-01-18 20:00] VITALS: BP 168/62
[2019-01-18] MEDS: ATORVASTATIN CALCIUM 10MG TABLET PO SCH (21:16)
[2019-01-18] MEDS: EPOETIN ALFA 10000UNITS/ML VIAL SUBCUT SCH (21:48)
[2019-01-19 00:08] VITALS: BP 155/49
[2019-01-19] MEDS: SODIUM CHLORIDE 0.45% 1,000 ML IV SCH (00:15)
[2019-01-19 04:00] VITALS: BP 157/53
[2019-01-19] MEDS: CALCIUM ACETATE 667MG CAPSULE PO SCH ×3 (06:31→17:58)
[2019-01-19] MEDS: INSULIN LISPRO 100 UNITS/ML SUBCUT SCH ×3 (06:35→17:54)
[2019-01-19] MEDS: BLOOD SUGAR DIAGNOSTIC STRIP TEST SCH ×3 (06:36→17:32)
[2019-01-19] MEDS: MINOXIDIL 2.5MG TABLET PO SCH (09:01)
[2019-01-19] MEDS: FOLIC ACID/VITAMIN B COMP W-C TABLET PO SCH (09:01)
[2019-01-19] MEDS: PIPERACILLIN/TAZ 2.25G PREMIX 50 ML IV SCH (09:07)
[2019-01-19] MEDS: HYDROMORPHONE HCL/PF 2MG/ML CPJ IV PRN (09:08)
[2019-01-19] MEDS: LORAZEPAM 2MG/ML CPJ IV PRN ×2 (11:35→17:58)
[2019-01-19 11:43] LABS: HEMATOCRIT. 26.2 % (42.0-52.0); HEMOGLOBIN. 8.6 g/dL (14.0-18.0); MEAN CORPUSCULAR HEMOGLOBIN 28.8 pg (28.0-32.0); MEAN CORPUSCULAR VOLUME 87.6 fL (80.0-94.0); PLATELET 279 x1000/uL (130-400); RED CELL DISTRIBUTION WIDTH 17.9 % (11.6-14.6)
[2019-01-19 12:00] VITALS: BP 182/52
[2019-01-19 13:02] LABS: PLATELET ESTIMATE NORMAL
[2019-01-19 16:00] VITALS: BP 172/54
[2019-01-19 16:22] VITALS: BP 172/54
[2019-01-19] MEDS: CLONIDINE 0.1MG TABLET PO PRN ×2 (16:25→20:37)
[2019-01-19] MEDS: ONDANSETRON HCL 4MG/2ML INJ IV PRN (17:59)
[2019-01-19 20:00] VITALS: BP 168/61
[2019-01-19] MEDS: ATORVASTATIN CALCIUM 10MG TABLET PO SCH (20:37)
== END 2019-01-19 21:55 | DRG 602 ==
LOC: ER 13:28 → 8WST 15:59 → EDBEDREQTM 16:12 → ENRESERV 20:52
PROVIDERS: ADMIT Internal Medicine Nephrology; ATTEND Internal Medicine Nephrology
PROC: 5A1D70Z Performance of Urinary Filtration, Intermittent, Less than 6 Hours Per Day (ICD-10-PCS; 2019-01-16)
PROC: 0Y9D3ZZ Drainage of Left Upper Leg, Percutaneous Approach (ICD-10-PCS; principal; 2019-01-17)
PROC: 5A1D70Z Performance of Urinary Filtration, Intermittent, Less than 6 Hours Per Day (ICD-10-PCS; 2019-01-17)
DX: L03.116 Cellulitis of left lower limb (principal); N18.6 End stage renal disease; I13.2 Hypertensive heart and chronic kidney disease with heart failure and with stage 5 chronic kidney disease, or end stage renal disease; L02.416 Cutaneous abscess of left lower limb; N40.0 Benign prostatic hyperplasia without lower urinary tract symptoms; E87.5 Hyperkalemia; D64.9 Anemia, unspecified; E11.22 Type 2 diabetes mellitus with diabetic chronic kidney disease; E11.42 Type 2 diabetes mellitus with diabetic polyneuropathy; E11.610 Type 2 diabetes mellitus with diabetic neuropathic arthropathy; E11.51 Type 2 diabetes mellitus with diabetic peripheral angiopathy without gangrene; F41.9 Anxiety disorder, unspecified; I25.10 Atherosclerotic heart disease of native coronary artery without angina pectoris; B96.20 Unspecified Escherichia coli [E. coli] as the cause of diseases classified elsewhere; B96.5 Pseudomonas (aeruginosa) (mallei) (pseudomallei) as the cause of diseases classified elsewhere; I50.9 Heart failure, unspecified; K21.9 Gastro-esophageal reflux disease without esophagitis; L89.629 Pressure ulcer of left heel, unspecified stage; Q63.1 Lobulated, fused and horseshoe kidney; Z79.4 Long term (current) use of insulin; Z79.899 Other long term (current) drug therapy; Z86.73 Personal history of transient ischemic attack (TIA), and cerebral infarction without residual deficits; Z99.2 Dependence on renal dialysis
CPT/HCPCS: 20611; 36415; 71045; 73700; 74176; 80048; 80061; 80202; 82962; 84484; 87070; 87077; 87186; 93005; 93306; 93970; 94640; 96374; 96375; 99285; C1893; J0885; J1170; J1815; J1940; J2060; J2405; J2543; J3370; J3490; J7060; J7611